=== PATIENT | male | born 1945 | race Caucasian/White ===

== ENCOUNTER 2020-01-30 15:25 | Observation (INO) | payer OTHER, MEDICARE, SELFPAY ==
[2020-01-30 15:28] VITALS: BP 176/113; PULSE 96; RESP 18; TEMP 36.4; O2SAT 97; BMI 32.5
--- NOTE | 2020-01-30 15:59 | ECG_ITS ---
Measurements Intervals [place] Rate: 82 P: 32 TN: 164 QRS: -10 QRSD: 98 T: 7 QT: 385 QTc: 450 SINUS RHYTHM MODERATE VOLTAGE CRITERIA FOR LVH, CONSIDER NORMAL VARIANT [MEETS CRITERIA IN ONE OF: R(aVL), S(V1), R(V5), R(V5/V6)+S(V1)] Compared to ECG 01/30/2020 15:35:41 Myocardial infarct finding no longer present Electronically Signed On 01-31-2020 19:44:[address] M.D. [id number]
--- NOTE | 2020-01-30 15:59 | XR_ITS ---
WS: [id number] PORTABLE CHEST HISTORY: cough/congestion COMPARISON: None available. There are a few scattered pulmonary nodules. These are probably calcified others may not be calcified . Irregular nodule measuring 6 mm in the central RIGHT lung. No pneumonia. No pleural effusion or pne umothorax. Cardiac size: Normal. Mediastinum/Aorta: Soft tissue thickening in the region of the RIGHT paratracheal. May be some sterna l goiter or lymph nodes. Partially calcified aorta. Degenerative changes at the AC joint XR/XR chest 1V portable 17130 IMPRESSION: 1. No pneumonia. 2. Bilateral pulmonary nodules. The largest measures 6 mm in the central RIGHT lung. These are not definitely calcified. No prior studies for comparison. Rec ommend follow-up chest CT with IV contrast to exclude neoplasm. 3. Fullness in the RIGHT paratracheal region. 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
--- NOTE | 2020-01-30 15:59 | ECG_ITS ---
Measurements Intervals [place] Rate: 98 P: 45 NE: 163 QRS: 18 QRSD: 98 T: 37 QT: 362 QTc: 463 SINUS RHYTHM POSSIBLE LEFT ATRIAL ENLARGEMENT [-0.1mV P WAVE IN V1/V2] POSSIBLE ANTERIOR MYOCARDIAL INFARCTION , OF INDETERMINATE AGE [30 ms Q WAVE IN V3 V3/V4, OR R < 0.2 mV IN V4] Compared to ECG 03/10/2018 17:10:05 Myocardial infarct finding now present Electronically Signed On 01-30-2020 18:45:42 CDT by Jed Westbrook M.D. [id number] saez
[2020-01-30 16:30] LABS: Basophils # 0.1 10^3/uL (0.0-0.1); Basophils % 0.6 %; Eosinophils # 0.9 10^3/uL (0.0-0.8); Eosinophils % 10.9 %; Hematocrit 45.3 % (42.0-52.0); Hemoglobin 14.2 g/dL (11.7-16.6); Lymphocytes # 1.7 10^3/uL (0.8-4.8); Lymphocytes % 21.2 %; Mean Corpuscular HGB Conc 31.3 g/dL (30.0-36.0); Mean Corpuscular Hemoglobin 31.6 pg (28.0-34.0); Mean Corpuscular Volume 100.7 fL (80-94); Mean Platelet Volume 9.7 fL (7.4-10.4); Monocytes # 0.7 10^3/uL (0.2-0.9); Monocytes % 9.2 %; Neutrophils # 4.5 10^3/uL (1.8-7.7); Neutrophils % 57.7 %; Nucleated Red Blood Cells % 0 %; Platelet Count 253 10^3/cmm (130-400); Red Cell Distribution Width 12.4 % (12.1-15.1); White Blood Count 7.8 10^3/uL (4.0-10.0)
[2020-01-30 16:39] LABS: Partial Thromboplastin Time 29.7 SECONDS (23.9-36.7)
[2020-01-30 16:42] LABS: D Dimer 0.83 ug/mIFEU (0-0.59)
[2020-01-30 16:54] LABS: Troponin(5th) Baseline 61 ng/mL (0-15)
[2020-01-30 17:02] LABS: Alanine Aminotransferase 15 U/L (0-41); Albumin Level 4.2 g/dL (3.5-5.2); Alkaline Phosphatase 109 IU/L (40-130); Anion Gap 17.2 (5-19); Aspartate Amino Transferase 17 U/L (0-40); Blood Urea Nitrogen 37 mg/dL (8-23); Calcium 9.2 mg/dL (8.5-10.5); Carbon Dioxide 27 mmol/L (22-29); Chloride 101 mmol/L (98-107); Globulin 3.7 g/dL (1.3-4.6); Glucose 98 mg/dL (65-115); NT Pro B Type Natriuretic Pept 212 pg/mL (0-125); Osmolality Calculated 289 mOsm/kg (285-295); Potassium 4.2 mmol/L (3.5-5.1); Sodium 141 mmol/L (136-145); Total Bilirubin 0.3 mg/dL (0.15-1.2); Total Protein 7.9 g/dL (6.6-8.7)
[2020-01-30 17:43] LABS: Add Urine Microscopic? NO
[2020-01-30 17:54] LABS: Bilirubin Urine Neg (NEGATIVE); Blood Urine Neg (Negative); Glucose Urine UA Norm (Normal); Ketones Urine Negative (Negative); Leukocyte Esterase Urine Negative (Negative); Nitrate Urine Negative (Negative); Protein Urine Neg (Negative); Specific Gravity, Urine 1.005 (1.005-1.030); Sulfosalicylic Acid Urine Negative (Negative); Urine Appearance Clear (CLEAR); Urine Color Straw (Yellow); Urobilinogen Urine Norm (Negative); pH Urine 8 (5-7)
--- NOTE | 2020-01-30 17:59 | ECG_ITS ---
Measurements Intervals [place] Rate: 82 P: 36 [place]: 162 QRS: -10 QRSD: 97 T: 11 QT: 385 QTc: 450 SINUS RHYTHM MINIMAL VOLTAGE CRITERIA FOR LVH, CONSIDER NORMAL VARIANT [MEETS CRITERIA IN ONE OF: R(aVL), S(V1), R(V5), R(V5/V6)+S(V1)] Compared to ECG 01/30/2020 15:35:41 Myocardial infarct finding no longer present Electronically Signed On 01-31-2020 19:47:[address] M.D. [id number]
--- NOTE | 2020-01-30 17:59 | ECG_ITS ---
Measurements Intervals [place] Rate: 95 P: 4 [place]: 148 QRS: -13 QRSD: 92 T: 5 QT: 358 QTc: 451 SINUS RHYTHM POSSIBLE LEFT ATRIAL ENLARGEMENT [-0.1mV P WAVE IN V1/V2] POSSIBLE LEFT VENTRICULAR HYPERTROPHY [VOLTAGE CRITERIA PLUS LAE OR QRS WIDENING] NONSPECIFIC T-WAVE ABNORMALITY Compared to ECG 01/30/2020 15:35:41 T-wave abnormality now present Myocardial infarct finding no longer present Electronically Signed On 01-31-2020 19:46:[address] M.D. [id number] saez
[2020-01-30 18:59] LABS: Troponin 5 2HR 81.64 ng/mL (0-15)
[2020-01-30 19:11] LABS: Troponin 5 2HR Delta 20.64 ABS# (0-10)
--- NOTE | 2020-01-30 19:23 | ED_ITS ---
HPI - Chest Pain General: Chief Complaint: Chest Pain Stated Complaint: POSSIBLE HEART ATTACK Time Seen by Provider: 01/30/20 19:22 History of Present Illness: HPI narrative: Jaden is a nice 74-year-old male who comes in complaining of chest pain. He describes the pain as a hurt . Pain is in the middle of his chest and radiates through to his back. He denies any type of ripping or tearing sensation. The pain has not been migrating. He has had shortness of breath but denies any nausea vomiting or diaphoresis. The patient had a nitroglycerin and he took that at home with some relief. He states since then the pain is just gradually been coming back. Presently says his pain is minimal. Associated symptoms: Reports dyspnea; Deny abdominal pain, diaphoresis, fever(s), nausea, palpitations, syncope or vomiting Review of Systems General: Reports: other (negative unless marked) Const: Denies: fever, chills, body aches, fatigue, malaise or diaphoresis Eyes: Denies: change in vision or blurry vision ENMT: Denies: throat pain, painful swallowing, hoarseness, ear pain, ear discharge, Change in hearing or nasal discharge Card: Reports: chest pain; Denies: palpitations, irregular heart rhythm, syncope, pre-syncope, shortness of breath on exertion or shortness of breath when lying down Resp: Reports: shortness of breath; Denies: productive cough, non-productive cough, wheezing, coughing up blood or chest congestion GI: Denies: abdominal pain, nausea, vomiting, vomiting blood, coffee grounds in vomit, diarrhea, constipation, cramping, blood in stool or black tarry stool : Denies: flank pain, difficulty urinating, painful urination, urinary frequency, urinary urgency, decreased urine ouput, urinary incontinence or blood in urine Musc: Denies: neck pain, back pain, extremity pain, extremity swelling, joint pain, joint swelling, joint warmth or joint stiffness Skin/Breast: Denies: rash, skin tenderness or yellow skin Neuro: Denies: headache, numbness in extremities, weakness in extremities, changes in sensation, lack of coordination, difficulty walking, dizziness, vertigo or confusion Endo: Denies: excessive thirst, tired all the time, cold intolerance, excessive sweating, flushing or hot flashes Giancarlo/Lymph: Denies: easy bruising, easy bleeding, petechiae or enlarged lymph nodes All/Imm: Denies: hives, throat swelling, tongue swelling, facial swelling or acute wheezing PFSH ED PFSH: Medical History COPD (chronic obstructive pulmonary disease) Diabetes mellitus Hypertension Social History Smoking and tobacco status: current some day smoker Physical Exam Const: COMMON NORMALS: no apparent distress, oriented x3, no limitations, healthy appearing and well nourished EXAM LIMITATIONS: no altered mental status GENERAL APPEARANCE: cooperative, well kempt and well developed ORIENTATION/CONSCIOUSNESS: Yes awake HENMT: COMMON NORMALS: normocephalic, head/scalp atraumatic, hearing grossly normal bilaterally, external ears normal, EAC's normal, external nose normal and moist oral mucous membranes HEAD & SCALP: normal to inspection, normocephalic and atraumatic FACE & SINUS: normal facial exam and face symmetric NOSE: external nose normal and nares normal EXTERNAL EAR: Yes external ears normal EXTERNAL AUDITORY CANAL: EAC's normal MOUTH: oral and palatal mucosa normal and tongue normal Eye: COMMON NORMALS: PERRL, EOMs intact bilaterally, conjunctivae normal and no scleral icterus GENERAL EYE: normal appearance of both eyes and normal light reflex CONJUNCTIVA: Yes conjunctivae normal SCLERA: sclerae normal CORNEA: Yes corneas normal PUPIL: Yes PERRL DIRECT OPHTHALMOSCOPY: Yes normal light reflex Neck/C-Spine: COMMON NORMALS: full ROM, no lymphadenopathy, supple, no meningeal signs and no JVD GENERAL: Yes normal visual inspection and Yes trachea midline CERVICAL SPINE: Yes cervical ROM normal Chest: COMMONS NORMALS: inspection of chest normal and palpation of chest normal Resp: COMMON NORMALS: normal respiratory effort, no retractions, no use of accessory muscles and clear to auscultation bilaterally EFFORT & INSPECTION: Yes able to speak in complete sentences AUSCULTATION: clear to auscultation bilaterally Cardio: COMMON NORMALS: no JVD, regular rate, regular rhythm, S1 normal heart sound, S2 normal heart sound, no gallops, no clicks, no murmurs and no rub JUGULAR VENOUS DISTENTION: no JVD RATE: regular rate RHYTHM: regular rhythm HEART SOUNDS: S1 normal and S2 normal GI: COMMON NORMALS: soft to palpation, non-tender, no hepatosplenomegaly and no masses INSPECTION: Yes normal to inspection PALPATION: Yes soft and Yes no hepatosplenomegaly : COMMON NORMALS: Yes no CVA tenderness BLADDER/KIDNEY EXAM: Yes no CVA tenderness Back/Pelvis: COMMON NORMALS: no CVA tenderness, thoracic and lumbar spine norm al to inspection, no thoracic nor lumbar tenderness and thoraco-lumbar ROM normal Extremity: COMMON NORMALS: normal to inspection, full ROM, normal capillary refill, no joint enlargement, no clubbing, cyanosis or edema and no calf tenderness Neuro: COMMON NORMALS: oriented x3, CN's II-XII intact bilaterally, moves all extremities, no focal motor deficits and no sensory deficits noted MENINGEAL SIGNS: Yes no meningeal signs Psych: COMMON NORMALS: mental status grossly normal, thought process normal, cooperative, affect normal, speech normal and activity/motor behavior normal APPEARANCE: Yes well kempt SPEECH: Yes normal speech THOUGHT PROCESS: normal thought process Skin: COMMON NORMALS: no rashes or lesions noted, skin turgor normal, no jaundice, no petechiae and no mottling GENERAL SKIN EXAM: no rashes or lesions noted and turgor normal Course Vital Signs: Vital signs: Vital Signs Temperature 97.6 F 01/30/20 15:28 Pulse Rate 96 01/30/20 15:28 Respiratory Rate 18 01/30/20 15:28 Blood Pressure 176/113 01/30/20 15:28 Pulse Oximetry 97 01/30/20 15:28 MDM - Chest Pain MDM Narrative: Medical decision making narrative: The patient is chest pain- free after 1 sublingual nitroglycerin here. His EKG is unremarkable. I have gone ahead and given him nitroglycerin paste. He received a loading dose of Lovenox. Dr. Zavala will determine further Lovenox dosing from here. Dr. Fofana is been made aware of the consult. Lab Data: Attestation: I reviewed the patient's lab results. Labs: Lab Results 01/30/20 01/30/20 01/30/20 Range/Units 15:55 16:13 16:13 WBC 7.8 (4.0-10.0) 10^3/ uL RBC 4.50 (4.1-5.3) 10^6/u L Hgb 14.2 (11.7-16.6) g/dL Hct 45.3 (42.0-52.0) % MCV 100.7 H (80-94) fL MCH 31.6 (28.0-34.0) pg MCHC 31.3 (30.0-36.0) g/dL RDW 12.4 (12.1-15.1) % Plt Count 253 (130-400) 10^3/c mm MPV 9.7 (7.4-10.4) fL Neut % (Auto) 57.7 % Lymph % (Auto) 21.2 % [place] % (Auto) 9.2 % Eos % (Auto) 10.9 % Baso % (Auto) 0.6 % Neut # (Auto) 4.5 (1.8-7.7) 10^3/u L Lymph # (Auto) 1.7 (0.8-4.8) 10^3/u L [place] # (Auto) 0.7 (0.2-0.9) 10^3/u L Eos # (Auto) 0.9 H (0.0-0.8) 10^3/u L Baso # (Auto) 0.1 (0.0-0.1) 10^3/u L Nucleated RBC % (a uto) 0 % Nucleated RBCs # 0.0 /100WBC PT (10.5-13.3) SECO NDS INR (0.8-1.2) APTT (23.9-36.7) SECO NDS D-Dimer (0-0.59) ug/mIFE U Sodium 141 (136-145) mmol/L Potassium 4.2 (3.5-5.1) mmol/L Chloride 101 (98-107) mmol/L Carbon Dioxide 27 (22-29) mmol/L Anion Gap 17.2 (5-19) BUN 37 H (8-23) mg/dL Creatinine 2.8 H (0.7-1.2) mg/dL Glucose 98 (65-115) mg/dL Calculated Osmolal ity 289 (285-295) mOsm/k g Calcium 9.2 (8.5-10.5) mg/dL Total Bilirubin 0.3 (0.15-1.2) mg/dL AST 17 (0-40) U/L ALT 15 (0-41) U/L Alkaline Phosphata se 109 (40-130) IU/L Troponin T Baselin e (0-15) ng/mL Troponin T 120 Min morris (0-15) ng/mL Delta Troponin T (0-10) ABS# NT-Pro-B Natriuret Pep 212 H (0-125) pg/mL Total Protein 7.9 (6.6-8.7) g/dL Albumin 4.2 (3.5-5.2) g/dL Globulin 3.7 (1.3-4.6) g/dL Urine Color Straw (Yellow) Urine Appearance Clear (CLEAR) Urine pH 8 H (5-7) Ur Specific Gravit y 1.005 (1.005-1.030) Urine Protein Neg (Negative) Urine Glucose (UA) Norm (Normal) Urine Ketones Negative (Negative) Urine Blood Neg (Negative) Urine Nitrate Negative (Negative) Urine Bilirubin Neg (NEGATIVE) Prot Sulfosalicyli c Acd Negative (Negative) Urine Urobilinogen Norm (Negative) mg/dL Ur Leukocyte Gloria ase Negative (Negative) 01/30/20 01/30/20 01/30/20 Range/Units 16:13 16:13 18:24 WBC (4.0-10.0) 10^3/ uL RBC (4.1-5.3) 10^6/u L Hgb (11.7-16.6) g/dL Hct (42.0-52.0) % MCV (80-94) fL MCH (28.0-34.0) pg MCHC (30.0-36.0) g/dL RDW (12.1-15.1) % Plt Count (130-400) 10^3/c mm MPV (7.4-10.4) fL Neut % (Auto) % Lymph % (Auto) % [place] % (Auto) % Eos % (Auto) % Baso % (Auto) % Neut # (Auto) (1.8-7.7) 10^3/u L Lymph # (Auto) (0.8-4.8) 10^3/u L [place] # (Auto) (0.2-0.9) 10^3/u L Eos # (Auto) (0.0-0.8) 10^3/u L Baso # (Auto) (0.0-0.1) 10^3/u L Nucleated RBC % (a uto) % Nucleated RBCs # /100WBC PT 12.40 (10.5-13.3) SECO NDS INR 0.90 (0.8-1.2) APTT 29.7 (23.9-36.7) SECO NDS D-Dimer 0.83 H (0-0.59) ug/mIFE U Sodium (136-145) mmol/L Potassium (3.5-5.1) mmol/L Chloride (98-107) mmol/L Carbon Dioxide (22-29) mmol/L Anion Gap (5-19) BUN (8-23) mg/dL Creatinine (0.7-1.2) mg/dL Glucose (65-115) mg/dL Calculated Osmolal ity (285-295) mOsm/k g Calcium (8.5-10.5) mg/dL Total Bilirubin (0.15-1.2) mg/dL AST (0-40) U/L ALT (0-41) U/L Alkaline Phosphata se (40-130) IU/L Troponin T Baselin e 61 H (0-15) ng/mL Troponin T 120 Min morris 81.64 H (0-15) ng/mL Delta Troponin T 20.64 H* (0-10) ABS# NT-Pro-B Natriuret Pep (0-125) pg/mL Total Protein (6.6-8.7) g/dL Albumin (3.5-5.2) g/dL Globulin (1.3-4.6) g/dL Urine Color (Yellow) Urine Appearance (CLEAR) Urine pH (5-7) Ur Specific Gravit y (1.005-1.030) Urine Protein (Negative) Urine Glucose (UA) (Normal) Urine Ketones (Negative) Urine Blood (Negative) Urine Nitrate (Negative) Urine Bilirubin (NEGATIVE) Prot Sulfosalicyli c Acd (Negative) Urine Urobilinogen (Negative) mg/dL Ur Leukocyte Gloria ase (Negative) EKG Data^: EKG 1: Attestation: I personally reviewed and interpreted this EKG as follows: EKG interpretation date: 01/30/20 EKG interpretation time: 15:35 Interpretation: Normal sinus rhythm at 98 beats a minute, no acute ST or T wave changes. EKG 2: Attestation: I personally reviewed and interpreted this EKG as follows: EKG interpretation date: 01/30/20 EKG interpretation time: 18:51 Interpretation: Normal sinus rhythm at 95 beats a minute, no acute ST or T wave changes. Discharge Plan Discharge Patient Disposition: Placed in Observation Clinical Impression: Non-ST elevation ME (NSTEMI) Condition: Stable Coding Level of Care Code ED Outpatient Physical Therapist Assistant for Chg Fwd Exam Comprehensive
[2020-01-30] MEDS: aspirin 325 mg Tablet PO (19:45)
[2020-01-30] MEDS: nitroglycerin 0.4 mg sublingual Tablet SUBLINGUAL (19:47)
[2020-01-30] MEDS: nitroglycerin 1 gm/inch oint Pkt 1 INCH TOPICAL (20:21)
[2020-01-30] MEDS: enoxaparin 100 mg/mL Syringe SUBCUT (22:24)
[2020-01-30 22:32] LABS: Troponin 5 6HR 147.4 ng/mL (0-15); Troponin 5 6HR Delta 86.4 ng/L (0-12)
--- NOTE | 2020-01-30 22:57 | PM.HP ---
Providers/Chief Complaint Chief Complaint: POSSIBLE HEART ATTACK History of Present Illness Jaden Cervantes is a 74 year old male with past medical history of diabetes, hypertension, COPD, probable chronic kidney disease who presents to emergency room with complaints of chest pain. He was given nitroglycerin prior to presenting to ER which provided improvement of the chest pain. In the emergency room he was given Nitropaste which also helped with the pain. The pain started suddenly in the morning. It is moderate in intensity. Described as tightness and pressure in substernal region without radiation. He denies similar episodes in the past. He denies any known history of prior heart disease. Troponin is elevated. Initial EKG shows poor R wave progression in precordial leads. He denies diaphoresis, shortness of breath, palpitations, dizziness or lightheadedness. Review of Systems General: Reports: 10 or more systems reviewed and unremarkable except in HPI and below Medications/Allergies Allergies Allergy/AdvReac Type Severity Reaction Status Date / Time serazone Allergy ALGY-Rash Uncoded 01/30/20 15:37 PFSH Acute PFSH: Medical History COPD (chronic obstructive pulmonary disease) Diabetes mellitus Hypertension Social History Smoking and tobacco status: current some day smoker Vitals/I&O/Wt Last Vital Signs Temp 97.6 F 01/30/20 15:28 Pulse 96 01/30/20 15:28 Resp 18 01/30/20 15:28 BP 176/113 01/30/20 15:28 Pulse Ox 97 01/30/20 15:28 Weight last 48 hrs Weight 99.79 kg Physical Exam Narrative: EXAM NARRATIVE: The patient is awake alert and oriented x4. No acute distress. Mood and affect are appropriate. Responses are adequate. Skin is warm and dry. No rash. Moist mucous membranes. Eyes [place], extraocular muscles intact. No icterus. Neck supple, no JVD Lungs clear bilaterally. No wheezes or crackles. No respiratory distress Heart S1, S2, regular Abdomen is soft, not distended, nontender, no rebound or guarding. Bowel sounds are active. Trace pedal edema. No cyanosis no calf tenderness bilaterally. Neurologic examination is nonfocal. Data : 01/30/20 16:13 01/30/20 16:13 Other Labs: Laboratory Results WBC 7.8 10^3/uL (4.0-10.0) 01/30/20 16:13 RBC 4.50 10^6/uL (4.1-5.3) 01/30/20 16:13 Hgb 14.2 g/dL (11.7-16.6) 01/30/20 16:13 Hct 45.3 % (42.0-52.0) 01/30/20 16:13 MCV 100.7 fL (80-94) H 01/30/20 16:13 MCH 31.6 pg (28.0-34.0) 01/30/20 16:13 MCHC 31.3 g/dL (30.0-36.0) 01/30/20 16:13 RDW 12.4 % (12.1-15.1) 01/30/20 16:13 Plt Count 253 10^3/cmm (130-400) 01/30/20 16:13 MPV 9.7 fL (7.4-10.4) 01/30/20 16:13 Neut % (Auto) 57.7 % 01/30/20 16:13 Lymph % (Auto) 21.2 % 01/30/20 16:13 [place] % (Auto) 9.2 % 01/30/20 16:13 Eos % (Auto) 10.9 % 01/30/20 16:13 Baso % (Auto) 0.6 % 01/30/20 16:13 Neut # (Auto) 4.5 10^3/uL (1.8-7.7) 01/30/20 16:13 Lymph # (Auto) 1.7 10^3/uL (0.8-4.8) 01/30/20 16:13 [place] # (Auto) 0.7 10^3/uL (0.2-0.9) 01/30/20 16:13 Eos # (Auto) 0.9 10^3/uL (0.0-0.8) H 01/30/20 16:13 Baso # (Auto) 0.1 10^3/uL (0.0-0.1) 01/30/20 16:13 Nucleated RBC % (auto) 0 % 01/30/20 16:13 Nucleated RBCs # 0.0 /100WBC 01/30/20 16:13 PT 12.40 SECONDS (10.5-13.3) 01/30/20 16:13 INR 0.90 (0.8-1.2) 01/30/20 16:13 APTT 29.7 SECONDS (23.9-36.7) 01/30/20 16:13 D-Dimer 0.83 ug/mIFEU (0-0.59) H 01/30/20 16:13 Sodium 141 mmol/L (136-145) 01/30/20 16:13 Potassium 4.2 mmol/L (3.5-5.1) 01/30/20 16:13 Chloride 101 mmol/L (98-107) 01/30/20 16:13 Carbon Dioxide 27 mmol/L (22-29) 01/30/20 16:13 Anion Gap 17.2 (5-19) 01/30/20 16:13 BUN 37 mg/dL (8-23) H 01/30/20 16:13 Creatinine 2.8 mg/dL (0.7-1.2) H 01/30/20 16:13 Glucose 98 mg/dL (65-115) 01/30/20 16:13 Calculated Osmolality 289 mOsm/kg (285-295) 01/30/20 16:13 Calcium 9.2 mg/dL (8.5-10.5) 01/30/20 16:13 Total Bilirubin 0.3 mg/dL (0.15-1.2) 01/30/20 16:13 AST 17 U/L (0-40) 01/30/20 16:13 ALT 15 U/L (0-41) 01/30/20 16:13 Alkaline Phosphatase 109 IU/L (40-130) 01/30/20 16:13 Troponin I 6 Hour 147.4 ng/mL (0-15) H 01/30/20 21:55 Troponin I Hi Sens Del 86.4 ng/L (0-12) H* 01/30/20 21:55 Troponin T Baseline 61 ng/mL (0-15) H 01/30/20 16:13 Troponin T 120 Minute 81.64 ng/mL (0-15) H 01/30/20 18:24 Delta Troponin T 20.64 ABS# (0-10) H* 01/30/20 18:24 NT-Pro-B Natriuret Pep 212 pg/mL (0-125) H 01/30/20 16:13 Total Protein 7.9 g/dL (6.6-8.7) 01/30/20 16:13 Albumin 4.2 g/dL (3.5-5.2) 01/30/20 16:13 Globulin 3.7 g/dL (1.3-4.6) 01/30/20 16:13 Urine Color Straw (Yellow) 01/30/20 15:55 Urine Appearance Clear (CLEAR) 01/30/20 15:55 Urine pH 8 (5-7) H 01/30/20 15:55 Ur Specific [place] 1.005 (1.005-1.030) 01/30/20 15:55 Urine Protein Neg (Negative) 01/30/20 15:55 Urine Glucose (UA) Norm (Normal) 01/30/20 15:55 Urine Ketones Negative (Negative) 01/30/20 15:55 Urine Blood Neg (Negative) 01/30/20 15:55 Urine Nitrate Negative (Negative) 01/30/20 15:55 Urine Bilirubin Neg (NEGATIVE) 01/30/20 15:55 Prot Sulfosalicylic Acd Negative (Negative) 01/30/20 15:55 Urine Urobilinogen Norm mg/dL (Negative) 01/30/20 15:55 Ur Leukocyte Esterase Negative (Negative) 01/30/20 15:55 Impressions Chest X-Ray 01/30/20 15:59 IMPRESSION: 1. No pneumonia. 2. Bilateral pulmonary nodules. The largest measures 6 mm in the central RIGHT lung. These are not definitely calcified. No prior studies for comparison. Recommend follow-up chest CT with IV contrast to exclude neoplasm. 3. Fullness in the RIGHT paratracheal region. 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 A&P Additional A&P Information Non-ST elevation NE. The patient given aspirin and full dose of Lovenox in the emergency room. Dr. St is consulted. He will see the patient in the morning. For now we will continue aspirin. Please check with the cream hauler if he wants to continue Lovenox in the morning. I am also starting the patient on Lipitor 80, Coreg 6.125 twice daily. We will continue as needed pain medications. Fasting lipids in the morning. Uncontrolled hypertension. Coreg is initiated. He will also receive PRN hydralazine and labetalol. History of chronic kidney disease. We will closely monitor his renal function. I will order IV fluid in case if he needs to go to cardiac lab tomorrow to minimize nephrotoxic effect of contrast. History of diabetes. I will start him on insulin sliding scale. DVT prophylaxis. Received Lovenox. CODE STATUS. The patient wants to be full code. The plan of care was discussed with the patient. He verbalized understanding and agreement. Pulmonary nodules/abnormal chest x-ray. The patient will need additional testing to rule out metastatic disease. Please inform the patient about this findings tomorrow and prior to discharge. Attestations Medical Necessity Statement*: Observation Coding Level of Care Code Acute Sawmill Equipment Operator for David Shen
--- NOTE | 2020-01-30 23:16 | P.CONIM_ITS ---
Providers/Reason For Consult Consulting Physican/Specialty*: Cardiology Reason for Consult*: Abnormal cardiac markers, chest pain History of Present Illness History of Present Illness Jaden Cervantes is a 74 year old male past medical history significant for tobacco abuse COPD diabetes mellitus hypertension chronic kidney disease stage III-IV presented with chest pain of off and on for about duration and it became more consistent he decided to come to ER. Chest pain consistency is more sharp in character worse on deep inspiration denies any shortness of breath. D-dimer was also elevated. Twelve-lead EKG did not show any significant changes. Meds/Allergies Home Medications and Allergies Allergies Allergy/AdvReac Type Severity Reaction Status Date / Time serazone Allergy ALGY-Rash Uncoded 01/30/20 15:37 Current Medications Current Medications Generic Name Dose Route Start Last Admin Trade Name Freq PRN Reason Stop Dose Admin Nitroglycerin 0.4 mg 01/30/20 19:30 01/30/20 19:47 Nitrostat SUBLINGUAL 0.4 mg Q5M PRN Administration CHEST PAIN PFSH Acute PFSH: Medical History (Updated 01/30/20 @ 23:[address] MD) COPD (chronic obstructive pulmonary disease) Diabetes mellitus Hypertension Social History Smoking and tobacco status: current some day smoker Vitals/I&O/Wt Last Vital Signs Temp 97.6 F 01/30/20 15:28 Pulse 96 01/30/20 15:28 Resp 18 01/30/20 15:28 BP 176/113 01/30/20 15:28 Pulse Ox 97 01/30/20 15:28 Weight last 48 hrs Weight 220 lb Data Labs: Other Labs: SINUS RHYTHM POSSIBLE LEFT ATRIAL ENLARGEMENT [-0.1mV P WAVE IN V1/V2] POSSIBLE LEFT VENTRICULAR HYPERTROPHY [VOLTAGE CRITERIA PLUS LAE OR QRS WIDENING] NONSPECIFIC T-WAVE ABNORMALITY Compared to ECG 01/30/2020 15:35:41 T-wave abnormality now present Myocardial infarct finding no longer present A&P Assessment and plan (1) Hypertension: Moderately elevated. Nitropaste, hydralazine will be used every required nitroglycerin IV should be started Status: Acute (2) CKD (chronic kidney disease) stage 4, GFR 15-29 ml/min: Baseline creatinine around 2.7-2.8 patient has stage IV kidney disease. Status: Acute (3) Abnormal cardiac enzyme level: Multifactorial including demand ischemia in the face of reduced clearance through renal failure. Pulmonary embolism need to be ruled out as well as pain characteristics is more consistent with it. CTA cannot be performed as due to renal failure. We will treat him conservatively. He may require ultrasound of the leg to rule out DVT and lung scan. If rule out for pulmonary embolism may will ask for a stress test. We will continue to monitor him. Echocardiogram will also be obtained in the morning. Status: Acute Coding Level of Care Code New Pt Acute Machine Clothing Replacer for Chg Fwd Patient Type New History Expanded Problem Focused Exam Expanded Problem Focused Medical Decision Making Moderate Complexity Diagnoses Hypertension I10 CKD (chronic kidney disease) stage 4, GFR 15-29 ml/min N18.4 Abnormal cardiac enzyme level R74.8
[2020-01-31] VITALS (74 sets, daily range): BP systolic 122–176; BP diastolic 78–113; PULSE 40–103; RESP 10–22; TEMP 36.7–37; O2SAT 91–97
--- NOTE | 2020-01-31 01:16 | PC.NURSE ---
Patient given sandwich per Dr. camargo. Patient also given a hospital bed since we will be boarding patient lauri.
[2020-01-31 02:32] LABS: Thyroid Stimulating Hormone 1.31 uIU/mL (0.27-4.20)
[2020-01-31] MEDS: sodium chloride 0.9% 1,000 ML 100 ML IV ×2 (03:01→13:35)
--- NOTE | 2020-01-31 04:05 | PC.NURSE ---
Assumed care of patient from CN.
--- NOTE | 2020-01-31 06:30 | PC.NURSE ---
Patient moved from Room 8 to Room 7.
[2020-01-31 06:33] LABS: Basophils # 0.1 10^3/uL (0.0-0.1); Eosinophils # 1.4 10^3/uL (0.0-0.8); Eosinophils % 19.7 %; Hemoglobin 13.1 g/dL (11.7-16.6); Lymphocytes # 2.2 10^3/uL (0.8-4.8); Lymphocytes % 31.5 %; Mean Corpuscular Hemoglobin 31.8 pg (28.0-34.0); Mean Corpuscular Volume 99.5 fL (80-94); Mean Platelet Volume 9.9 fL (7.4-10.4); Monocytes # 0.8 10^3/uL (0.2-0.9); Monocytes % 11.4 %; Neutrophils # 2.5 10^3/uL (1.8-7.7); Neutrophils % 35.8 %; Nucleated Red Blood Cells % 0 %; Platelet Count 220 10^3/cmm (130-400); Red Blood Count 4.12 10^6/uL (4.1-5.3); Red Cell Distribution Width 12.5 % (12.1-15.1)
[2020-01-31 06:37] LABS: Anion Gap 15.1 (5-19); Blood Urea Nitrogen 33 mg/dL (8-23); Carbon Dioxide 27 mmol/L (22-29); Chloride 106 mmol/L (98-107); Glucose 104 mg/dL (65-115); Magnesium 2.8 mg/dL (1.7-2.3); Osmolality Calculated 296 mOsm/kg (285-295); Potassium 4.1 mmol/L (3.5-5.1); Sodium 144 mmol/L (136-145)
[2020-01-31 06:38] LABS: Chol HDL Ratio 3.41 mg/dL (1.0-5.00); Cholesterol 133 mg/dL (0-200); HDL Cholesterol 39 mg/dL (60-100); LDL Cholesterol Calculated 71 mg/dL (50-129); LDL HDL Ratio 1.82 RATIO (0.00-3.22); Triglycerides 117 mg/dL (0-150)
--- NOTE | 2020-01-31 07:36 | PC.NURSE ---
Report received from Timothy Mitchell RN at 0700. Patient resting in bed comfortably at this time.
--- NOTE | 2020-01-31 07:44 | PM.PN ---
Subjective Subjective: Interval history: History and physical physical reviewed. Patient denies any chest discomfort currently. He does report a cough. Medications: Reviewed: Yes Vitals/I&O/Wt Last Vital Signs Temp 97.6 F 01/30/20 15:28 Pulse 76 01/31/20 07:25 Resp 16 01/31/20 07:25 BP 130/90 01/31/20 07:25 Pulse Ox 91 01/31/20 07:25 Weight last 48 hrs Weight 99.79 kg Physical Exam Narrative: EXAM NARRATIVE: General exam is no apparent distress Cardiovascular regular rate and rhythm without murmur Lungs a few rhonchi bibasilar. No wheezing Abdomen is soft with positive bowel sounds Extremities no cyanosis clubbing. Trace edema is present. Data : 01/31/20 06:12 01/31/20 06:12 A&P Additional A&P Information Non-ST elevation [place]. Continue full dose Lovenox. Continue aspirin, statin, beta-nuzhat. Appreciate cardiology consultation. In reviewing cardiology consultation they would like to evaluate the possibility of pulmonary embolism with VQ scan, venous duplex lower extremities. I have ordered this. Certainly VQ scan will need to be delayed until COVID testing returns. Consideration of nuclear stress testing if above is negative. Echocardiogram ordered Pulmonary nodules. Will need outpatient follow-up Hypertension, improved today. Continue beta-nuzhat. Evaluate for other medicine addition. Chronic kidney disease stage III. Currently receiving fluids. Avoid renal toxic medications. Tobacco dependency, probable COPD. Combivent metered-dose inhaler as needed History of diabetes. Sliding scale insulin. Full code DVT prophylaxis with Lovenox The plan of care was discussed with the patient. He verbalized understanding and agreement. Attestations Medical Necessity Statement*: Needs continued hospitalization for evaluation of chest discomfort. Coding Level of Care Code Acute Hospice Patient Care Secretary for David Shen
[2020-01-31] MEDS: aspirin 81 mg EC Tablet 162 MG PO (09:42)
[2020-01-31] MEDS: enoxaparin 100 mg/mL Syringe SUBCUT ×2 (09:42→23:05)
[2020-01-31] MEDS: atorvastatin 40 mg Tablet 80 MG PO (09:42)
--- NOTE | 2020-01-31 10:07 | PC.NURSE ---
Attempted to call report to ICU, on hold for 15 minutes was told nurse taking patient is in room with other patient.
[2020-01-31 13:08] LABS: Glucose Point of Care 98 mg/dL (70-110)
[2020-01-31] MEDS: carvedilol 6.25 mg Tablet PO ×2 (13:34→23:04)
[2020-01-31 17:56] LABS: Glucose Point of Care 133 mg/dL (70-110)
--- NOTE | 2020-01-31 19:24 | PM.PN ---
Subjective Subjective: Interval history: Denies any more chest pain. Medications: Reviewed: Yes Vitals/I&O/Wt Last Vital Signs Temp 98.6 F 01/31/20 10:15 Pulse 53 L 01/31/20 16:35 Resp 17 01/31/20 14:45 BP 158/106 01/31/20 16:35 Pulse Ox 96 01/31/20 16:35 01/31/20 01/31/20 01/31/20 06:59 14:59 22:59 Intake Total 1000 / 1000 Balance 1000 / 1000 Weight last 48 hrs Weight 220 lb Data : 01/31/20 06:12 01/31/20 06:12 A&P Assessment and plan (1) Hypertension: Well-controlled. Status: Acute (2) CKD (chronic kidney disease) stage 4, GFR 15-29 ml/min: Baseline creatinine around 2.7-2.8 patient has stage IV kidney disease. Status: Acute (3) Abnormal cardiac enzyme level: Multifactorial including demand ischemia in the face of reduced clearance through renal failure. Pulmonary embolism need to be ruled out as well as pain characteristics is more consistent with it. CTA cannot be performed as due to renal failure. We will treat him conservatively. He may require ultrasound of the leg to rule out DVT and lung scan. If rule out for pulmonary embolism may will ask for a stress test. We will continue to monitor him. Echocardiogram will also be obtained in the morning. Patient denies any more chest pain. Troponin has peaked to 146 by generation 5. VQ scan will be performed. Echo is pending. After reviewing the results further plan will be advised. Continue anticoagulation Status: Acute Attestations Medical Necessity Statement*: Patient require continuation hospitalization for above defined care Coding Level of Care Code Established Pt Acute Semiconductor Wafers Etcher Stripper for Chg Fwd Patient Type Established History Expanded Problem Focused Exam Expanded Problem Focused Medical Decision Making Moderate Complexity Diagnoses Hypertension I10 CKD (chronic kidney disease) stage 4, GFR 15-29 ml/min N18.4 Abnormal cardiac enzyme level R74.8
--- NOTE | 2020-01-31 20:40 | PC.NURSE ---
Assumed care of patient at 0030 from Nurse Nur.
[2020-01-31 21:15] LABS: Glucose Point of Care 84 mg/dL (70-110)
[2020-02-01] VITALS (7 sets, daily range): BP systolic 122–168; BP diastolic 79–112; PULSE 62–86; RESP 18–24; TEMP 36.4–36.8; O2SAT 91–96
[2020-02-01] MEDS: sodium chloride 0.9% 1,000 ML 30 ML IV (02:09)
[2020-02-01 05:23] LABS: Basophils # 0.1 10^3/uL (0.0-0.1); Basophils % 0.7 %; Eosinophils # 1.5 10^3/uL (0.0-0.8); Eosinophils % 20.7 %; Hematocrit 41.6 % (42.0-52.0); Hemoglobin 13.2 g/dL (11.7-16.6); Lymphocytes # 2.3 10^3/uL (0.8-4.8); Lymphocytes % 32.1 %; Mean Corpuscular HGB Conc 31.7 g/dL (30.0-36.0); Mean Corpuscular Hemoglobin 31.4 pg (28.0-34.0); Mean Platelet Volume 9.7 fL (7.4-10.4); Monocytes # 0.7 10^3/uL (0.2-0.9); Monocytes % 9.5 %; Neutrophils # 2.7 10^3/uL (1.8-7.7); Neutrophils % 36.6 %; Nucleated Red Blood Cells % 0 %; Platelet Count 241 10^3/cmm (130-400); Red Cell Distribution Width 12.4 % (12.1-15.1); White Blood Count 7.3 10^3/uL (4.0-10.0)
[2020-02-01 06:02] LABS: Alanine Aminotransferase 12 U/L (0-41); Albumin Level 3.8 g/dL (3.5-5.2); Alkaline Phosphatase 97 IU/L (40-130); Aspartate Amino Transferase 16 U/L (0-40); Blood Urea Nitrogen 29 mg/dL (8-23); Calcium 8.7 mg/dL (8.5-10.5); Carbon Dioxide 25 mmol/L (22-29); Chloride 106 mmol/L (98-107); Globulin 3.2 g/dL (1.3-4.6); Glucose 99 mg/dL (65-115); Osmolality Calculated 289 mOsm/kg (285-295); Sodium 141 mmol/L (136-145); Total Bilirubin 0.3 mg/dL (0.15-1.2)
[2020-02-01 06:51] LABS: Glucose Point of Care 99 mg/dL (70-110)
--- NOTE | 2020-02-01 07:00 | USCV_ITS ---
Jaden Cervantes Age: 74 Gender: M : 1945 Exam Date: 02/01/2020 10:30 Ordering Phys: Elton Grullon MD Technologist: Asha Cevallos Exam Location: [facility] – [place] Indication: POSITIVE D-DIMER HISTORY: Positive D-dimer PROCEDURES: Venous duplex imaging was performed in bilateral lower extremities. The following venous structures were evaluated: common femoral vein, profunda vein, proximal portion of the greater saphenous vein, superficial femoral vein, and the popliteal vein. In addition, the posterior tibial and peroneal trunk were evaluated. Serial compression, augmentation maneuvers, and spectral Doppler flow evaluation were performed. FINDINGS: Normal 2-D Doppler and augmentation and compressibility throughout the lower extremity venous structures. Additional imaging through the proximal calf veins also reveals no thrombus. Limited evaluation of the greater saphenous vein is patent with no thrombus.. Collapsed wall mass in the right popliteal fossa may be a small or collapsed Perez's cyst. CONCLUSIONS No DVT bilateral lower extremities. Collapsed or small right Perez's cyst. Dr. Digna Cooney DO (Electronically Signed) Final Date: 01 Feb 2020 13:23 S
--- NOTE | 2020-02-01 07:00 | USCV_ITS ---
Jaden Cervantes Age: 74 Gender: M : 1945 Exam Date: 02/01/2020 10:15 Ordering Phys: Elton Grullon MD Technologist: Asha Cevallos Exam Location: [facility] – [place] Indication: ELEV TROP BP: / HR: 70 Rhythm: Sinus Technical Quality: Poor MEASUREMENTS (Male / Female) Normal Values 2D ECHO LV Diastolic Diameter PLAX 5.0 cm 4.2 - 5.9 / 3.9 - 5.3 cm LV Systolic Diameter PLAX 3.7 cm LV Chamber Size 3.5 cm IVS Diastolic Thickness 1.4 cm 0.6 - 1.0 / 0.6 - 0.9 cm IVS Systolic Thickness 2.0 cm LVPW Diastolic Thickness 2.2 cm 0.6 - 1.0 / 0.6 - 0.9 cm LVPW Systolic Thickness 2.0 cm RV Chamber Size 4.0 cm LVOT Diameter 2.0 cm LV Ejection Fraction 2D Teich 51.5 % LV Ejection Fraction MOD 2C 62.0 % LV Ejection Fraction 2C AL 64.7 % LA Diameter 5.4 cm LA Width 3.2 cm LA Height 4.8 cm RA Width 3.2 cm RA Height 4.7 cm Aorta at Sinotubular Diameter 4.1 cm M-MODE LV Diastolic Diameter MM 6.7 cm 4.2 - 5.9 / 3.9 - 5.3 cm LV Systolic Diameter MM 5.4 cm LV Ejection Fraction MM Teich 38.8 % IVS Diastolic Thickness MM 1.3 cm 0.6 - 1.0 / 0.6 - 0.9 cm IVS Systolic Thickness MM 2.0 cm LVPW Diastolic Thickness MM 1.1 cm 0.6 - 1.0 / 0.6 - 0.9 cm LVPW Systolic Thickness MM 1.9 cm Aortic Annulus Diameter 3.0 cm LA Ao Ratio MM 1.8 MV E Point Septal Separation 1.2 cm DOPPLER AV Peak Velocity 126.0 cm/s LVOT Peak Velocity 78.0 cm/s AV Area Cont Eq vti 2.6 cm squared AV Area Cont Eq pk 2.0 cm squared MV Area PHT 3.5 cm squared Mitral E to A Ratio 0.6 MV E' Velocity 8.0 cm/s Mitral E to MV E' Ratio 8.6 Mitral E to LV E' Lateral Ratio 7.6 Mitral E to LV E' Septal Ratio 10.3 TR Peak Velocity 231.0 cm/s TR Peak Gradient 21.4 mmHg TV Peak E Velocity 45.0 cm/s Right Atrial Pressure 3.0 mmHg Pulmonary Artery Systolic Pressu 24.3 mmHg PV Peak Velocity 73.0 cm/s RV Acceleration Time 0.1 s RV Ejection Time 0.3 s RV AcT/ET 0.3 FINDINGS Left Ventricle The ventricle is poorly seen in all views with the exception of the apical view. The ventricle is likely normal in size. No obvious wall motion disturbances. Grade 1 diastolic dysfunction. A rough estimate of the ejection fraction is 55 to 60%. Right Ventricle The right ventricle appears mildly generous in size. The free wall motion is normal. Normal pulmonary artery pressure Right Atrium Mildly increased right atrial size. Left Atrium Moderately increased left atrial size. Mitral Valve Structurally normal mitral valve. Trace mitral valve regurgitation. Aortic Valve Structurally normal aortic valve without significant sclerosis or stenosis. There is no aortic regurgitation. Tricuspid Valve Structurally normal tricuspid valve without significant stenosis or regurgitation. Pulmonary artery systolic pressure is normal. Pulmonic Valve Pulmonic valve not well visualized. Pericardium Normal pericardium without effusion. Aorta Normal ascending aorta dimension. CONCLUSIONS The ventricle is poorly seen in all views with the exception of the apical view. The ventricle is likely normal in size. No obvious wall motion disturbances. Grade 1 diastolic dysfunction. A rough estimate of the ejection fraction is 55 to 60%. Mildly increased right atrial size. Moderately increased left atrial size. Structurally normal mitral valve. Trace mitral valve regurgitation. There are no prior echocardiogram studies to compare. Dr. Ervin Nichols MD (Electronically Signed) Final Date: 01 Feb 2020 16:09 S
--- NOTE | 2020-02-01 08:00 | NM_ITS ---
WS: [id number] NUCLEAR MEDICINE VENTILATION/PERFUSION LUNG SCAN HISTORY: positive d-dimer, SEE NOTE BELOW; COMPARISON: Chest radiograph 01/30/2020 TECHNIQUE: Ventilation: 32.5 mCi of Technetium 99 DTPA aerosol inhaled. Perfusion: 4.9 mCi of technetium 99m MAA IV. Ventilatory portion demonstrates significant deposition centrally with poor radionuclide inhalation i n the periphery. Perfusion examination demonstrates a matched wedge-shaped defect in the posterior LE FT lower lobe. There are no unmatched defects. NM/NM pul vent and perfus* [id number] IMPRESSION: Low probability pulmonary embolism.
[2020-02-01] MEDS: aspirin 81 mg EC Tablet 162 MG PO (09:02)
[2020-02-01] MEDS: atorvastatin 40 mg Tablet 80 MG PO (09:02)
--- NOTE | 2020-02-01 09:22 | PC.RESP ---
Smoking Cessation and Pulmonary Rehab information sent to patient with a schedule of classes.
--- NOTE | 2020-02-01 10:04 | PC.CHAP ---
Pastoral Care Encounter/Spiritual Assessment Type of Contact [] Declined concrete panel installer visit [] Patient/Family/Request visit [] Outpatient visit [] Follow-up visit [] Physician referral [] Code/Alert [x] Routine visit [] Staff referral [] Actively dying [] Patient sleeping [] Family support [] [] Out of room [] Palliative care [] [] Receiving care in room [] Pre-surgical visit [] Trauma [] Long length of stay [] ICU visit [] Other: Relational/Emotional Strength [] Patient feels connected with others/family/visitors/staff [] Distress [] Loneliness/isolation [] Abandonment Spirituality of Patient [] Person of Cassie [] Attends Oriental Orthodox of their Cassie [] Believes in Prayer [] Reads Bible or Samaritan materials [] There are Spiritual issues to be addressed Utilities And Maintenance Supervisor Interventions [x] Prayer [] Active listening [] Non-anxious presence [] Spiritual/emotional support [] Crisis/trauma care [] Spiritual counseling [] Bereavement support [] Provided bereavement packet [] Provided Bible/devotional materials [] Provided toy/stuffed animal, coloring book to patient or family member [] Provided Communion [] Anointing/[place] [] Salvation [x] Completed spiritual assessment [] Other: Impact on Illness or Injury [] Angry [] Fearful [] Anxious [] Often cries [] Exhaustion [] Unable to work [] Unable to attend samaritan [] Unable to walk/stand [] Unable to read [] Unable to drive [] Unable to eat/drink [] Unable to sleep [] Unable to be with family [] Patient intubated [] Other: Summary Patient feeling stronger Time spent with patient 10 min
--- NOTE | 2020-02-01 10:57 | PM.PN ---
Subjective Subjective: Interval history: Patient admits to occasional chest pain whenever he takes a deep breath Medications: Reviewed: Yes Vitals/I&O/Wt Last Vital Signs Temp 97.6 F 02/01/20 07:46 Pulse 86 02/01/20 08:16 Resp 18 02/01/20 08:16 BP 168/112 02/01/20 07:46 Pulse Ox 95 02/01/20 08:16 01/31/20 02/01/20 02/01/20 22:59 06:59 14:59 Intake Total 360 / 1360 1000 / 2360 240 / 240 Balance 360 / 1360 1000 / 2360 240 / 240 Weight last 48 hrs Weight 220 lb Data : 02/01/20 04:53 02/01/20 04:53 A&P Assessment and plan (1) Hypertension: Not well controlled we will titrate medicine. I will increase carvedilol to 12.5 mg and will add amlodipine to the regimen Status: Acute (2) CKD (chronic kidney disease) stage 4, GFR 15-29 ml/min: Baseline creatinine around 2.7-2.8 patient has stage IV kidney disease. Status: Acute (3) Abnormal cardiac enzyme level: Multifactorial including demand ischemia in the face of reduced clearance through renal failure. Pulmonary embolism need to be ruled out as well as pain characteristics is more consistent with it. CTA cannot be performed as due to renal failure. We will treat him conservatively. He may require ultrasound of the leg to rule out DVT and lung scan. If rule out for pulmonary embolism may will ask for a stress test. We will continue to monitor him. Echocardiogram will also be obtained in the morning. Patient denies any more chest pain. Troponin has peaked to 146 by generation 5. VQ scan will be performed. Echo is pending. After reviewing the results further plan will be advised. Continue anticoagulation On today's visit patient chest pain has resolved mostly except for occasional chest pain on deep breathing. VQ scan was performed which is low probability. There is no pleurisy. Doppler of lower extremity is awaiting. If everything turned out to be negative we may can schedule him for outpatient stress test. I will follow-up on him in my clinic in 4 to 6 weeks Status: Acute Attestations Medical Necessity Statement*: Patient require continuation hospitalization for above defined care. Coding Level of Care Code Acute Vice President Network Development for Nataliag Fwd Diagnoses Hypertension I10 CKD (chronic kidney disease) stage 4, GFR 15-29 ml/min N18.4 Abnormal cardiac enzyme level R74.8
[2020-02-01 11:02] LABS: Glucose Point of Care 88 mg/dL (70-110)
[2020-02-01] MEDS: enoxaparin 100 mg/mL Syringe SUBCUT (11:24)
[2020-02-01] MEDS: carvedilol 12.5 mg Tablet PO (11:24)
[2020-02-01] MEDS: amlodipine 5 mg Tablet 2.5 MG PO (11:24)
--- NOTE | 2020-02-01 11:44 | PM.PN ---
Subjective Subjective: Interval history: Jaden reports no chest discomfort. He reports his chest discomfort he did have previously hurt when he was breathing. He denies any significant cough. Medications: Reviewed: Yes Vitals/I&O/Wt Last Vital Signs Temp 97.6 F 02/01/20 07:46 Pulse 86 02/01/20 08:16 Resp 18 02/01/20 08:16 BP 168/112 02/01/20 07:46 Pulse Ox 95 02/01/20 08:16 01/31/20 02/01/20 02/01/20 22:59 06:59 14:59 Intake Total 360 / 1360 1000 / 2360 240 / 240 Balance 360 / 1360 1000 / 2360 240 / 240 Weight last 48 hrs Weight 99.79 kg Physical Exam Narrative: EXAM NARRATIVE: General exam is no apparent distress Cardiovascular regular rate and rhythm without murmur Lungs a few rhonchi bibasilar. No wheezing Abdomen is soft with positive bowel sounds Extremities no cyanosis clubbing. Trace edema is present. Data : 02/01/20 04:53 02/01/20 04:53 A&P Additional A&P Information Non-ST elevation [place]. Continue full dose Lovenox. Continue aspirin, statin, beta-nuzhat. Cardiology has evaluated, and was concerned regarding pulmonary embolism. VQ scan is low probability. Venous duplex lower extremities pending. COVID testing was negative. Consideration of nuclear stress testing by cardiology, after review of venous duplex and echocardiogram. I will defer to their judgment whether this should be inpatient or outpatient. Pulmonary nodules. Will need outpatient follow-up Hypertension, improved today. Continue beta-nuzhat. Norvasc added Chronic kidney disease stage III. Avoid renal toxic medications. Tobacco dependency, probable COPD. Combivent metered-dose inhaler as needed History of diabetes. Sliding scale insulin. Full code DVT prophylaxis with Lovenox Discontinue IV fluids Will review with cardiology further plans such as nuclear stress testing. Attestations Medical Necessity Statement*: Awaiting further testing to determine if discharge is appropriate today. Coding Level of Care Code Acute Telecommunications Line Installer for David Shen
--- NOTE | 2020-02-01 13:57 | PM.DCS ---
Discharge Providers Date of Admission: 01/31/20 10:16 Date of Discharge: February 01, 2020 Attending Provider at Admission: Elton Grullon MD Attending Provider at Discharge: Elton Grullon MD Primary Care Provider: DOCTOR NOT ON FILE Diagnoses at Discharge Discharge Diagnosis (1) Hypertension: Status: Acute Problem details: Markedly elevated on admission. With medication adjustments this is much improved. Currently on Norvasc, carvedilol and Imdur will be added on discharge (2) CKD (chronic kidney disease) stage 4, GFR 15-29 ml/min: Status: Acute Problem details: Stable (3) Abnormal cardiac enzyme level: Status: Acute Problem details: Venous duplex, VQ scan negative. Echocardiogram normal EF, no wall motion abnormalities. Will have outpatient nuclear imaging testing Reason for Visit Reason for Visit: Reason For Visit: POSSIBLE HEART ATTACK Hospital Course Hospital Course: Mr. Cervantes is a 74-year-old white male who presented to the emergency department with chest discomfort, somewhat pleuritic in quality. Troponin was elevated. D-dimer was slightly high. EKG not diagnostic. Blood pressure was significantly high. Serial cardiac enzyme levels were monitored and baseline high-sensitivity troponin was 61, and at 6 hours 147. While in the hospital he had no further chest discomfort. Cardiology was consulted. They were concerned about the pleuritic nature of the discomfort. A VQ scan was ordered(CTA avoided secondary to renal dysfunction) as well as bilateral venous duplex. Both of these studies were negative. Echocardiogram was performed which was reported to me by cardiology of normal EF, no wall motion abnormalities or significant concerns. While in the hospital medication was adjusted, for heart safe medication as well as treatment of blood pressure. Coreg was added. Norvasc was added. Imdur will be added on discharge. He received aspirin and a statin. TSH was checked and normal. Chest x-ray demonstrated some pulmonary nodules, which should be followed up as an outpatient COVID testing was negative. After reviewing with cardiology his current clinical course, as he had no chest discomfort and the pain was atypical he will be discharged home for outpatient nuclear stress testing and follow-up with cardiology. His elevated cardiac enzymes are thought to be type II elevation. Physical Exam Narrative: EXAM NARRATIVE: See exam from earlier today Discharge Data Data Completed and Pending: Completed Studies During Hospitalization Category Date Time Status XR chest 1V malorie ble [id number] Urgent Exams 01/30/20 15:59 Completed NM pul vent and p erfus* [id number] Routi ne Nuc Med 02/01/20 08:00 [place] [id number] Routin e Ultrasound 02/01/20 07:00 Completed Pending at discharge Category Date Time Status CV echo complete* [id number] Routine Ultrasound 02/01/20 07:00 Taken Labs from last 24 hours 02/01/20 02/01/20 02/01/20 10:56 06:34 04:53 WBC RBC Hgb Hct MCV MCH MCHC RDW Plt Count MPV Neut % (Auto) Lymph % (Auto) Garfield % (Auto) Eos % (Auto) Baso % (Auto) Neut # (Auto) Lymph # (Auto) Garfield # (Auto) Eos # (Auto) Baso # (Auto) Nucleated RBC % (a uto) Nucleated RBCs # Sodium 141 Potassium 4.0 Chloride 106 Carbon Dioxide 25 Anion Gap 14.0 BUN 29 H Creatinine 2.4 H Glucose 99 POC Glucose 88 99 Calculated Osmolal ity 289 Calcium 8.7 Total Bilirubin 0.3 AST 16 ALT 12 Alkaline Phosphata se 97 Total Protein 7.0 Albumin 3.8 Globulin 3.2 Nasal/Oral COVID-1 9 PCR 02/01/20 01/31/20 01/31/20 04:53 21:09 17:47 WBC 7.3 RBC 4.20 Hgb 13.2 Hct 41.6 L MCV 99.0 H MCH 31.4 MCHC 31.7 RDW 12.4 Plt Count 241 MPV 9.7 Neut % (Auto) 36.6 Lymph % (Auto) 32.1 Garfield % (Auto) 9.5 Eos % (Auto) 20.7 Baso % (Auto) 0.7 Neut # (Auto) 2.7 Lymph # (Auto) 2.3 Garfield # (Auto) 0.7 Eos # (Auto) 1.5 H Baso # (Auto) 0.1 Nucleated RBC % (a uto) 0 Nucleated RBCs # 0.0 Sodium Potassium Chloride Carbon Dioxide Anion Gap BUN Creatinine Glucose POC Glucose 84 133 Calculated Osmolal ity Calcium Total Bilirubin AST ALT Alkaline Phosphata se Total Protein Albumin Globulin Nasal/Oral COVID-1 9 PCR 01/30/20 23:02 WBC RBC Hgb Hct MCV MCH MCHC RDW Plt Count MPV Neut % (Auto) Lymph % (Auto) Garfield % (Auto) Eos % (Auto) Baso % (Auto) Neut # (Auto) Lymph # (Auto) Garfield # (Auto) Eos # (Auto) Baso # (Auto) Nucleated RBC % (a uto) Nucleated RBCs # Sodium Potassium Chloride Carbon Dioxide Anion Gap BUN Creatinine Glucose POC Glucose Calculated Osmolal ity Calcium Total Bilirubin AST ALT Alkaline Phosphata se Total Protein Albumin Globulin Nasal/Oral COVID-1 9 PCR See comment Vitals: Last Vital Signs Temp 98.3 F 02/01/20 12:00 Pulse 75 02/01/20 12:00 Resp 18 02/01/20 12:00 BP 122/79 02/01/20 12:00 Pulse Ox 95 02/01/20 12:00 Discharge Plan Discharge Patient Disposition: Home, Self-Care Condition: Stable Prescriptions: New carvedilol 12.5 mg Tablet 12.5 mg PO Q12H Qty: 60 RF: 0 amlodipine 5 mg Tablet 2.5 mg PO DAILY Qty: 15 RF: 0 aspirin 81 mg Tablet,Delayed Release (Dr/Ec) 162 mg PO DAILY Qty: 60 RF: 0 atorvastatin 40 mg Tablet 80 mg PO DAILY Qty: 60 RF: 0 isosorbide mononitrate 30 mg tablet extended release 24 hr 30 mg PO DAILY Qty: 30 RF: 0 Discontinued nifedipine 60 mg Tablet Extended Release 120 mg PO DAILY RF: 0 Discharge Orders: Discharge Order (Routine); Ordered 02/01/20 Ordered By: Elton Grullon Other Ambulatory Orders: Sestamibi Stress Test Request (Routine) Timeframe: 1 Week Facility: [facility] - Location: Cardiac Diagnostic Laboratory Ordered By: Elton Grullon Referrals: Florian St MD [Physician] - 1 month Sabina Yeh FNP [Referring] - 4-7 days (Follow-up at [facility] with visit, [facility] Arrange for outpatient noncontrast CT chest follow-up pulmonary nodule seen on chest x-ray [facility], in 1 to 2 weeks) Discharge Diet: Cardiac and Diabetic Discharge Activity: Limit activity as instructed Activity Restrictions/Additional Instructions: Light activity Nuclear stress test as outpatient Follow-up cardiology, Dr. St 3 weeks Return for any concerns Discharge Attestations Time Spent in Discharge Care*: greater than 30 min Quality Metrics Clinical Quality Measures During this hospital stay, did patient experience: None Coding Level of Care Code Acute Radiation Oncology Manager for Chg Fwd Diagnoses Hypertension I10 CKD (chronic kidney disease) stage 4, GFR 15-29 ml/min N18.4 Abnormal cardiac enzyme level R74.8
== END 2020-02-01 16:10 | disposition home or self-care (01) ==
LOC: ER 01-31 07:12 → ICU 01-31 12:30 → MEDSURG 01-31 20:39
PROVIDERS: Emergency Medicine; Family Medicine; Internal Medicine; Physician Assistant; Admitting Provider Internal Medicine; Visit Provider Internal Medicine
DX: I21.4 Non-ST elevation (NSTEMI) myocardial infarction (principal); R74.8 Abnormal levels of other serum enzymes; I12.9 Hypertensive chronic kidney disease with stage 1 through stage 4 chronic kidney disease, or unspecified chronic kidney disease; N18.3 Chronic kidney disease, stage 3 (moderate); F17.210 Nicotine dependence, cigarettes, uncomplicated
CPT/HCPCS: 12345; 36415; 36416; 71045; 78014; 80048; 80053; 80061; 81003; 82962; 83735; 83880; 84443; 84484; 85025; 85378; 85610; 85730; 87635; 93005; 93306; 93970; 94640; 96360; 96361; 96372; 96374; 96375; 96376; 99283; 99285; A9540; A9567; G0378; G0379; J1650; J7030

== ENCOUNTER 2020-03-26 09:39 | Outpatient (CLI) | payer OTHER, MEDICARE, SELFPAY ==
[2020-03-26 09:58] VITALS: BMI 36.0
--- NOTE | 2020-03-26 09:59 | NMCV_ITS ---
NM flaquito perf SPECT r/s* [id number] Jaden Cervantes Age: 74 Gender: M : 1945 Exam Date: 03/26/2020 09:59 Ordering Phys: Florian St MD ([email or web address]) Technologist: ISAMAR Davenport Exam Location: [facility] Indications: Abnormal cardiac enzyme levels STRESS TEST Please see separate stress test report in [facility] for full findings IMAGE PROTOCOL Rest/Stress 1 Lexiscan Day Radiopharmaceutical Dose (mCi) Administration Site Administered by Rest: Tc-99m 10.8 IV ISAMAR Mccullough Sestamibi Stress:Tc-99m 32.8 IV ISAMAR Davenport Sestamibi Rest: 26-Mar-2020 60 Discovery 630 Stress: 26-Mar-2020 60 Discovery 630 0.4mg Lexiscan. Supine position only as patient was unable to lay prone. 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 FUNCTIONAL RESULTS (calculated via Gated SPECT) Stress Image LV EF (%): 49 Stress EDV (mL):132 TID: 1 Stress ESV (mL):67 Rest Image LV EF (%): 49 FUNCTIONAL FINDINGS: Inferior for lateral wall hypokinesis IMPRESSIONS Medium-sized area of old myocardial infarction versus scarring noted in basal to mid inferior inferolateral wall without ginger-infarct ischemia. EKG segment will be documented separately. Florian St MD (Electronically Signed) Final Date: 28 March 2020 18:52 S
--- NOTE | 2020-03-26 09:59 | ECG_ITS ---
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 Interpretive Statements NAME OF STUDY: LEXISCAN SESTAMIBI STRESS TEST INDICATION: Chest Pain, NOTE: Please note that this is the electrocardiogram portion of the Lexiscan/Sestamibi stress test. The perfusion scan will be documented separately. DATA: Baseline heart rate was 158 beats per minute. Baseline blood pressure was 126/98 millimeters of mercury. Target heart rate was 148 . Maximum heart rate achieved was 93. which was 62 % of the predicted target heart rate. Maximum blood pressure was 170/116 millimeters of mercury. The reason for ending the test was completion of the protocol. The patient did not experience any symptoms. ELECTROCARDIOGRAM: BASELINE: Sinus rhythm. Normal axis. Old anterior wall myocardial infarction otherwise, no ST-T changes suggestive of ischemia noted. No arrhythmia noted. EXERCISE: After Lexiscan injection, no ST-T changes suggestive of ischemic noted. No arrhythmia noted. CONCLUSION: Please note due to baseline abnormality of the EKG specificity and sensitivity of the EKG portion of LexiScan MIBI stress test will be low 1. EKG not suggestive of ischemia 2. Lexiscan injection unremarkable. 3. Perfusion scan will be documented separately. Electronically Signed On 03-27-2020 19:14:[address] M.D. https://[employer] Networksasht[facility].[employer]/store/OM/[id number]
[2020-03-26 12:23] VITALS: BP 134/99; PULSE 78
[2020-03-26] MEDS: ondansetron 2 mg/ML SDV 2 mL 4 MG IVP (12:23)
[2020-03-26] MEDS: regadenoson 0.4 Mg/5 ml Syringe IVP (12:23)
== END 2020-03-26 09:40 | disposition home or self-care (01) ==
PROVIDERS: PCP Nurse Practitioner; Visit Provider Internal Medicine Cardiovascular Disease
DX: R07.9 Chest pain, unspecified (principal); R74.8 Abnormal levels of other serum enzymes
CPT/HCPCS: 78452; 93017; 96374; A9500; J2405; J2785

== ENCOUNTER 2020-04-24 15:00 | Outpatient (CLI) | payer OTHER, SELFPAY ==
--- NOTE | 2020-04-24 15:05 | CT_ITS ---
WS: [id number] CT CHEST TECHNIQUE: Noncontrast CT of the chest with coronal and sagittal reformatted images. CLINICAL INFORMATION: LUNG NODULES COMPARISON: Radiograph January 30, 2020 DLP: 1026.[address] scans at [facility] use at least one of these dose optimization techniques: automat ed exposure control; mA and/or kV adjustment per patient size (includes targeted exams where dose is matched to clinical indication); or iterative reconstruction. FINDINGS: Mild chronic emphysematous changes. Calcified granulomas. Slight bibasilar atelectasis. Tiny hazy 5 m m subpleural nodule in the right upper lobe. No other noncalcified pulmonary parenchymal abnormalitie s. Calcified right hilar nodes. No acute pulmonary infiltrates. No focal pneumonia. Thyroid gland is normal. Tortuous thoracic aorta with mild aortic calcification. No axillary lymphade nopathy. Adrenal glands are normal. Small esophageal hiatal hernia. CT/CT chest wo con [id number] IMPRESSION: 1. Tiny 5 mm subpleural hazy pulmonary nodule in the right upper lobe. Recomme nd 12 month follow-up. 2. No other suspicious pulmonary parenchymal abnormalities. 3. Multiple calcified granulomas correspond to the chest radiograph findings 4. No mediastinal or hilar lymphadenopathy. Calcified paratracheal and right h ilar lymph nodes. 5. No other significant findings.
== END 2020-04-24 15:01 | disposition home or self-care (01) ==
LOC: RADWPI 15:02
PROVIDERS: PCP Nurse Practitioner; Visit Provider Nurse Practitioner
DX: R91.8 Other nonspecific abnormal finding of lung field (principal)
CPT/HCPCS: 71250

== ENCOUNTER → 2020-05-18 11:10 | Outpatient (BNVA) | payer OTHER, MEDICARE, SELFPAY | PROVIDERS: PCP Nurse Practitioner; Visit Provider Internal Medicine Cardiovascular Disease | DX: N18.4 Chronic kidney disease, stage 4 (severe) (principal) | CPT/HCPCS: 80048; 85025 ==

== ENCOUNTER 2020-06-07 12:46 | Outpatient (CLI) | payer OTHER, MEDICARE, SELFPAY ==
--- NOTE | 2020-06-07 14:15 | USCV_ITS ---
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 Dr Jed Westbrook MD [facility] (Electronically Signed) Final Date: 08 June 2020 09:35 S
== END 2020-06-07 12:47 | disposition home or self-care (01) ==
LOC: RAD 12:49
PROVIDERS: PCP Nurse Practitioner; Visit Provider Internal Medicine Cardiovascular Disease
DX: I73.9 Peripheral vascular disease, unspecified (principal)
CPT/HCPCS: 93922

== ENCOUNTER 2020-07-19 15:41 | Inpatient (IN) | payer OTHER, MEDICARE, SELFPAY ==
[2020-07-19] VITALS (14 sets, daily range): BP systolic 101–142; BP diastolic 57–95; PULSE 67–89; RESP 17–24; TEMP 36.6–36.9; O2SAT 92–96; BMI 32.5
--- NOTE | 2020-07-19 16:06 | XRR_ITS ---
PROCEDURE INFORMATION: Exam: XR Chest, 1 View Exam date and time: 07/19/2020 4:29 PM Age: 74 years old Clinical indication: Cough and dyspnea; Additional info: Dyspnea/cough TECHNIQUE: Imaging protocol: XR of the chest Views: 1 view. COMPARISON: CT chest [facility] [id number] 04/24/2020 3:10 PM FINDINGS: Lungs: Unremarkable. No consolidation. Evidence of antecedent granulomatous disease. Pleural space: Unremarkable. No pleural effusion. No pneumothorax. Heart/Mediastinum: Cardiac size upper limits of normal. Arteriosclerosis. Bones/joints: Unremarkable. XR/XR chest 1V portable [id number] IMPRESSION: Nonacute.
--- NOTE | 2020-07-19 16:07 | ECG_ITS ---
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
[2020-07-19 16:30] LABS: Basophils # 0.1 10^3/uL (0.0-0.1); Basophils % 0.7 %; Eosinophils # 0.1 10^3/uL (0.0-0.8); Eosinophils % 1.3 %; Hematocrit 43.4 % (42.0-52.0); Hemoglobin 13.9 g/dL (11.7-16.6); Lymphocytes # 1.6 10^3/uL (0.8-4.8); Lymphocytes % 16.6 %; Mean Corpuscular Hemoglobin 31.9 pg (28.0-34.0); Mean Corpuscular Volume 99.5 fL (80-94); Mean Platelet Volume 9.9 fL (7.4-10.4); Monocytes # 0.9 10^3/uL (0.2-0.9); Monocytes % 8.7 %; Neutrophils # 7.06 10^3/uL (1.8-7.7); Neutrophils % 71.9 %; Nucleated Red Blood Cells % 0 %; Platelet Count 224 10^3/cmm (130-400); Red Blood Count 4.36 10^6/uL (4.1-5.3); White Blood Count 9.8 10^3/uL (4.0-10.0)
[2020-07-19 16:58] LABS: Alanine Aminotransferase 21 U/L (0-41); Albumin Level 4.6 g/dL (3.5-5.2); Alkaline Phosphatase 135 IU/L (40-130); Anion Gap 21.7 (5-19); Aspartate Amino Transferase 26 U/L (0-40); Blood Urea Nitrogen 55 mg/dL (8-23); Calcium 9.5 mg/dL (8.5-10.5); Carbon Dioxide 20 mmol/L (22-29); Chloride 101 mmol/L (98-107); Globulin 2.7 g/dL (1.3-4.6); Glucose 100 mg/dL (65-115); Osmolality Calculated 301 mOsm/kg (285-295); Potassium 4.7 mmol/L (3.5-5.1); Sodium 138 mmol/L (136-145); Total Bilirubin 0.6 mg/dL (0.15-1.2); Total Protein 7.3 g/dL (6.6-8.7)
[2020-07-19 17:01] LABS: Troponin(5th) Baseline 20 ng/L (0-15)
[2020-07-19] MEDS: sodium chloride 0.9% 500 ML 999 ML IV (17:09)
--- NOTE | 2020-07-19 17:10 | W.ED.SYNCOPE ---
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 Phosphata se (40-130) IU/L Troponin T Baselin e (0-15) ng/L Troponin T 120 Min [place] (0-15) ng/L Delta Troponin T (0-10) ABS# Troponin T Hi Sens 6Hr (0-15) ng/L Troponin T Hi Sens 6Hr Delta (0-12) ng/L Total Protein (6.6-8.7) g/dL Albumin (3.5-5.2) g/dL Globulin (1.3-4.6) g/dL Urine Color (Yellow) Urine Appearance (CLEAR) Urine pH (5-7) Ur Specific Gravit y (1.005-1.030) Urine Protein (Negative) Urine Glucose (UA) (Normal) Urine Ketones (Negative) Urine Blood (Negative) Urine Nitrate (Negative) Urine Bilirubin (Negative) Urine Urobilinogen (Negative) mg/dL Ur Leukocyte Gloria ase (Negative) Urine RBC (0-2) /hpf Urine WBC (0-5) /hpf Ur Squamous Epith Cells (0-5) /hpf Amorphous Sediment Urine Bacteria (NONE) /hpf Fine Granular Cast s /lpf Urine Mucus /hpf Urine Opiates Scre en (Negative) ng/mL Ur Barbiturates Sc reen (Negative) ng/mL Ur Phencyclidine S crn (Negative) ng/mL Ur Amphetamines Sc reen (Negative) ng/mL U Benzodiazepines Scrn (Negative) ng/mL Urine Cocaine Scre en (Negative) ng/mL U Marijuana (THC) Screen (Negative) ng/mL Ethyl Alcohol (0-10) mg/dL Imaging Data^: CXR: Attestation: I personally reviewed and interpreted this imaging study as follows: My impression: No acute cardiopulmonary findings. CT Head: Radiologist's impression: [place] [address] CT Scan Report Signed Patient: Jaden Cervantes Unit #: [id number] : 1945 Age/Sex: 74 / M ADM Date: 07/19/20 Loc: ER Room/Bed: Attending Dr: Ordering Provider/Ordering MD: Torin Avelar MD, [facility] [place] Date of Service: 07/19/20 Procedure(s): CT head wo con* [id number] Accession Number(s): [id number] Report Number: [id number] PROCEDURE INFORMATION: Exam: CT Head Without Contrast Exam date and time: 07/19/2020 6:55 PM Age: 74 years old Clinical indication: Syncope and collapse; Patient HX: Scan x 2 due to patient motion TECHNIQUE: Imaging protocol: Computed tomography of the head without contrast. Radiation optimization: All CT scans at this facility use at least one of these dose optimization techniques: automated exposure control; mA and/or kV adjustment per patient size (includes targeted exams where dose is matched to clinical indication); or iterative reconstruction. COMPARISON: No relevant prior studies available. RADIATION DOSE METRICS: Total DLP (mGy-cm): 1475.87 FINDINGS: Brain: No evidence of active or acute intracranial pathologic process, hemorrhage, or trauma. 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 Antecedent lacunar infarctions of the centrum semi ovale. Antecedent right thalamic lacunar infarction. Old right anterior limb internal capsule lacunar infarction. No mass effect. No midline shift. Cerebral and cerebellar atrophy with ventricular dilatation advanced for patient's chronological age. Cerebral ventricles: No ventriculomegaly. Bones/joints: Unremarkable. No acute fracture. Paranasal sinuses: Visualized sinuses are unremarkable. No fluid levels. Mastoid air cells: Visualized mastoid air cells are well aerated. Soft tissues: Unremarkable. CT/CT head wo con* [id number] IMPRESSION: 1. No evidence of active or acute intracranial pathologic process, hemorrhage, or trauma. 2. 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 3. Antecedent lacunar infarctions. 4. Cerebral and cerebellar atrophy with ventricular dilatation advanced for patient's chronological age. Radiation Dose CTDIVOL = (mGy): DLP = 1475.87 (mGy-cm) Dictated By: Rosalio Madison Signed By: Rosalio Madison Signed Date/Time: 07/19/201930 DD/ 29 CT Abd/Pel: Radiologist's impression: [address] [address] [address] Scan Report Signed Patient: Jaden Cervantes Unit #: [id number] : 1945 Age/Sex: 74 / M ADM Date: 07/19/20 Loc: ER Room/Bed: Attending Dr: Ordering Provider/Ordering MD: Torin Avelar MD, [facility] [place] Date of Service: 07/19/20 Procedure(s): CT abdomen pelvis wo con [id number] Accession Number(s): [id number] Report Number: [id number] PROCEDURE INFORMATION: Exam: CT Abdomen And Pelvis Without Contrast Exam date and time: 07/19/2020 6:56 PM Age: 74 years old Clinical indication: Mass, lump, or swelling; Abdominal pain; Prior surgery; Surgery type: Hernia; Additional info: Abd pain TECHNIQUE: Imaging protocol: Computed tomography of the abdomen and pelvis without contrast. Radiation optimization: All CT scans at this facility use at least one of these dose optimization techniques: automated exposure control; mA and/or kV adjustment per patient size (includes targeted exams where dose is matched to clinical indication); or iterative reconstruction. COMPARISON: CT abdomen pelvis con [id number] 04/13/2018 11:05 AM RADIATION DOSE METRICS: Total DLP (mGy-cm): 1347.79 FINDINGS: Lungs: Limited assessment of the lung bases fails to reveal evidence for active cardiopulmonary process. Coronary artery disease. Calcified mitral annulus. No visible pericardial effusion. Liver: Unremarkable. No mass. Gallbladder and bile ducts: Normal. No calcified stones. No ductal dilation. Pancreas: Unremarkable. No ductal dilation. Spleen: Normal. No splenomegaly. Adrenal glands: Unremarkable. No mass. Kidneys and ureters: Very tiny focus of nonobstructing calyceal nephrolithiasis equator right kidney under 2 mm. No hydronephrosis. No visible ureterolithiasis. Stomach and bowel: Extensive diverticulosis coli, most advanced in the sigmoid colon, without visible evidence of acute diverticulitis. Nonobstructive bowel pattern. No visible adynamic or reactive ileus. Appendix: The appendix is visualized and appears noninflamed. Intraperitoneal space: No visible evidence of mesenteric lymphadenitis or active mesenteritis/panniculitis. Vasculature: Mild fusiform aneurysmal dilatation of the distal abdominal aorta over length of 5.6 cm with a maximum AP diameter in transverse diameter of 3.8 cm. Moderate arterial sclerotic disease. No significant overall change since 04/13/2018. Lymph nodes: No current visible evidence of active mesenteric or retroperitoneal lymphadenopathy. Urinary bladder: Unremarkable as visualized. Reproductive: Mild prostate hypertrophy. Bones/joints: Advanced degenerative disease degenerative disc disease L5/S1. Soft tissues: Unremarkable. Other findings: Obesity. CT/CT abdomen pelvis con [id number] IMPRESSION: 1. Currently no visible evidence of acute abdominal or pelvic pathologic process. 2. Very tiny focus of nonobstructing calyceal nephrolithiasis equator right kidney under 2 mm. 3. Extensive diverticulosis coli without evidence for acute diverticulitis. 4. Stable mild fusiform aneurysmal dilatation of the distal abdominal aorta. 5. Other nonurgent, nonemergent, chronic, and age related findings as detailed in text above. Radiation Dose CTDIVOL = (mGy): DLP = 1347.79 (mGy-cm) Dictated By: Rosalio Madison Signed By: Rosalio Madison Signed Date/Time: 07/19/201941 DD/ 40 Discharge Plan Discharge Patient Disposition: Placed in Observation Admit Provider: Jayda Jarquin Clinical Impression: Acute on chronic kidney failure Syncope Qualifiers: Syncope type: unspecified Qualified Code(s): R55 - Syncope and collapse Condition: Stable Referrals: Florian St MD [Physician] - 7-10 days ([facility] [place] [facility] [place] you Thursday with an appointment. If you don't hear from them please call [phone]) Sabina Yeh FNP [Primary Care Provider] - 4-7 days (Please call your primary care provider and set up an appointment to be seen in 4-7 days. [phone]) Discharge Diet: Cardiac Discharge Activity: Increase activity as tolerated Patient Instructions: Chronic Kidney Disease (GEN) Additional Instructions: Stay hydrated. Avoid NSAIDs. Hold Lipitor for now. Discharge Date/Time: 07/19/20 21:49 Sign Out Sign Out Data: Patient Sign Out occurred on 07/19/20 at 19:04. Patient's care was discussed, and care was transferred from to Michelle Razo [facility]. Coding Level of Care Code ED Physician Neonatology for Chg Fwd Exam Comprehensive
[2020-07-19] MEDS: ondansetron 2 mg/ML SDV 2 mL 4 MG IVP (17:15)
[2020-07-19 17:39] LABS: Add Urine Microscopic? YES; Bilirubin Urine Neg (Negative); Blood Urine Trace (Negative); Glucose Urine UA Norm (Normal); Ketones Urine 1+ (Negative); Leukocyte Esterase Urine Negative (Negative); Nitrate Urine Negative (Negative); Protein Urine Neg (Negative); Specific Gravity, Urine 1.025 (1.005-1.030); Urine Appearance Clear (CLEAR); Urine Color Yellow (Yellow); Urobilinogen Urine 1 mg/dL (Negative); pH Urine 5 (5-7)
[2020-07-19 17:41] LABS: Add Urine Culture? Yes; Bacteria Urine 2+ /hpf; Fine Granular Casts Urine 0-4 /lpf; Mucus Urine 2+ /hpf; RBC Urine 0-4 /hpf (0-2); Squamous Epithelial Cell Urine 0-4 /hpf (0-5); WBC Urine 0-4 /hpf (0-5)
--- NOTE | 2020-07-19 18:07 | ECG_ITS ---
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1945 Requested By: Samuel Carreon Order Number: [id number] Reading MD: GANESH BELL Measurements Intervals [place] Rate: 84 P: 64 CT: 162 QRS: 19 QRSD: 101 T: 7 QT: 388 QTc: 460 Interpretive Statements SINUS RHYTHM NONSPECIFIC T-WAVE ABNORMALITY Compared to ECG 07/19/2020 15:59:11 T-wave abnormality now present Ventricular premature complex(es) no longer present Electronically Signed On 07-20-2020 18:24:09 CDT by GANESH BELL [email or web address] river county hospitalVonagepark[facility].[employer]/store/NU/[id number] f
--- NOTE | 2020-07-19 18:36 | CTR_ITS ---
PROCEDURE INFORMATION: Exam: CT Head Without Contrast Exam date and time: 07/19/2020 6:55 PM Age: 74 years old Clinical indication: Syncope and collapse; Patient HX: Scan x 2 due to patient motion TECHNIQUE: Imaging protocol: Computed tomography of the head without contrast. Radiation optimization: All CT scans at this facility use at least one of these dose optimization techniques: automated exposure control; mA and/or kV adjustment per patient size (includes targeted exams where dose is matched to clinical indication); or iterative reconstruction. COMPARISON: No relevant prior studies available. RADIATION DOSE METRICS: Total DLP (mGy-cm): 1475.87 FINDINGS: Brain: No evidence of active or acute intracranial pathologic process, hemorrhage, or trauma. 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 Antecedent lacunar infarctions of the centrum semi ovale. Antecedent right thalamic lacunar infarction. Old right anterior limb internal capsule lacunar infarction. No mass effect. No midline shift. Cerebral and cerebellar atrophy with ventricular dilatation advanced for patient's chronological age. Cerebral ventricles: No ventriculomegaly. Bones/joints: Unremarkable. No acute fracture. Paranasal sinuses: Visualized sinuses are unremarkable. No fluid levels. Mastoid air cells: Visualized mastoid air cells are well aerated. Soft tissues: Unremarkable. CT/CT head wo con* [id number] IMPRESSION: 1. No evidence of active or acute intracranial pathologic process, hemorrhage, or trauma. 2. 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 3. Antecedent lacunar infarctions. 4. Cerebral and cerebellar atrophy with ventricular dilatation advanced for patient's chronological age. Radiation Dose CTDIVOL = (mGy): DLP = 1475.87 (mGy-cm)
--- NOTE | 2020-07-19 18:36 | CTR_ITS ---
PROCEDURE INFORMATION: Exam: CT Abdomen And Pelvis Without Contrast Exam date and time: 07/19/2020 6:56 PM Age: 74 years old Clinical indication: Mass, lump, or swelling; Abdominal pain; Prior surgery; Surgery type: Hernia; Additional info: Abd pain TECHNIQUE: Imaging protocol: Computed tomography of the abdomen and pelvis without contrast. Radiation optimization: All CT scans at this facility use at least one of these dose optimization techniques: automated exposure control; mA and/or kV adjustment per patient size (includes targeted exams where dose is matched to clinical indication); or iterative reconstruction. COMPARISON: CT abdomen pelvis wo con [id number] 04/13/2018 11:05 AM RADIATION DOSE METRICS: Total DLP (mGy-cm): 1347.79 FINDINGS: Lungs: Limited assessment of the lung bases fails to reveal evidence for active cardiopulmonary process. Coronary artery disease. Calcified mitral annulus. No visible pericardial effusion. Liver: Unremarkable. No mass. Gallbladder and bile ducts: Normal. No calcified stones. No ductal dilation. Pancreas: Unremarkable. No ductal dilation. Spleen: Normal. No splenomegaly. Adrenal glands: Unremarkable. No mass. Kidneys and ureters: Very tiny focus of nonobstructing calyceal nephrolithiasis equator right kidney under 2 mm. No hydronephrosis. No visible ureterolithiasis. Stomach and bowel: Extensive diverticulosis coli, most advanced in the sigmoid colon, without visible evidence of acute diverticulitis. Nonobstructive bowel pattern. No visible adynamic or reactive ileus. Appendix: The appendix is visualized and appears noninflamed. Intraperitoneal space: No visible evidence of mesenteric lymphadenitis or active mesenteritis/panniculitis. Vasculature: Mild fusiform aneurysmal dilatation of the distal abdominal aorta over length of 5.6 cm with a maximum AP diameter in transverse diameter of 3.8 cm. Moderate arterial sclerotic disease. No significant overall change since 04/13/2018. Lymph nodes: No current visible evidence of active mesenteric or retroperitoneal lymphadenopathy. Urinary bladder: Unremarkable as visualized. Reproductive: Mild prostate hypertrophy. Bones/joints: Advanced degenerative disease degenerative disc disease L5/S1. Soft tissues: Unremarkable. Other findings: Obesity. CT/CT abdomen pelvis wo con [id number] IMPRESSION: 1. Currently no visible evidence of acute abdominal or pelvic pathologic process. 2. Very tiny focus of nonobstructing calyceal nephrolithiasis equator right kidney under 2 mm. 3. Extensive diverticulosis coli without evidence for acute diverticulitis. 4. Stable mild fusiform aneurysmal dilatation of the distal abdominal aorta. 5. Other nonurgent, nonemergent, chronic, and age related findings as detailed in text above. Radiation Dose CTDIVOL = (mGy): DLP = 1347.79 (mGy-cm)
[2020-07-19] MEDS: sodium chloride 0.9% 1,000 ML 999 ML IV (19:24)
[2020-07-19 20:27] LABS: Troponin 5 2HR 16.88 ng/L (0-15)
[2020-07-19] MEDS: sodium chloride 0.9% 1,000 ML 100 ML IV (20:32)
[2020-07-19 20:38] LABS: Troponin 5 2HR Delta -3.12 ABS# (0-10)
[2020-07-19 21:57] LABS: Troponin 5 6HR 17.09 ng/L (0-15)
[2020-07-19 22:07] LABS: Alcohol Level < 10 mg/dL (0-10); Troponin 5 6HR Delta -2.91 ng/L (0-12)
--- NOTE | 2020-07-19 22:07 | ECG_ITS ---
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
--- NOTE | 2020-07-19 22:53 | P.HP_ITS ---
Providers/Chief Complaint Admitting Physician: Jayda Jarquin Primary Care Provider: ANEESH Reynolds Chief Complaint: Blacking out History of Present Illness 74-year-old with a past medical history significant for chronic diastolic heart failure, hypertension, chronic kidney disease, COPD, diabetes mellitus who has presented to the hospital after he had multiple episodes of syncope. 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 He apparently woken up in a ditch and noted incontinence of urine. He cannot recall any symptoms prior to episode. Denies any recent chest pain or shortness of breath. Upon arrival to emergency room patient's initial laboratory workup showed a WBC of 9.8, hemoglobin of 13.9, hematocrit 43.4 and a platelet count of 224. sodium 138, potassium 4.7, chloride 101, bicarb 20, BUN 55 and creatinine of 3.4. It appears the patient's baseline creatinine is between 2.2 and 2.4. Imaging studies in ER included a Head CT which showed old lacunar infarcts. Had noted abdominal pain to ER however denied this on my eval. CT abdomen pelvis was done which did not show any acute abnormality however incidently noted to have a distal abdominal aorta 3.8 cm in size. Patient was admitted to the hospital for further work up. Review of Systems General: Reports: 10 or more systems reviewed and unremarkable except in HPI and below Medications/Allergies Home Medications Medication Instructions Recorded Confirmed Last Taken Type aspirin 81 mg tablet,delayed 162 mg PO DAILY #180 tab 03/07/20 07/19/20 07/19/20 Rx release atorvastatin 40 mg tablet 80 mg PO DAILY #180 tab 03/07/20 07/19/20 07/19/20 Rx carvedilol 12.5 mg tablet 12.5 mg PO Q12H #180 tab 03/07/20 07/19/20 07/19/20 Rx isosorbide mononitrate 30 mg 30 mg PO DAILY #90 tab 03/07/20 07/19/20 07/19/20 Rx tablet,extended release 24 hr nitroglycerin 0.4 mg sublingual 0.4 mg SUBLINGUAL Q5M PRN #25 tab 03/07/20 07/19/20 Unknown Rx tablet amlodipine 5 mg tablet 5 mg PO BID #180 tab 05/22/20 07/19/20 07/19/20 Rx Allergies Allergy/AdvReac Type Severity Reaction Status Date / Time serazone Allergy Mild ALGY-Rash Uncoded 05/18/20 10:31 PFSH Acute PFSH: Medical History CAD (coronary artery disease) CHF (congestive heart failure) COPD (chronic obstructive pulmonary disease) Diabetes mellitus Hypertension Markedly elevated on admission. With medication adjustments this is much improved. Currently on Norvasc, carvedilol and Imdur will be added on discharge Social History Smoking and tobacco status: current some day smoker Vitals/I&O/Wt Last Vital Signs Temp 98.2 F 07/20/20 04:00 Pulse 90 07/20/20 04:00 Resp 18 07/20/20 04:00 BP 165/70 07/20/20 04:00 Pulse Ox 94 07/20/20 02:00 07/19/20 07/19/20 07/20/20 14:59 22:59 06:59 Intake Total 1500 / 1500 Balance 1500 / 1500 Weight last 48 hrs Weight 99.79 kg Physical Exam Narrative: EXAM NARRATIVE: General: Alert, awake oriented x 3 NAD HEENT : NC/AT, unremarkable CVS : Regular rate CHEST: Clear to auscultation ABD: Soft NT/ND Ext : no edema Data : 07/19/20 16:15 07/19/20 16:15 A&P Assessment and plan (1) Syncope: No prior hx of syncope Obtain ECHO Monitor on tele May consider EEG Head CT - old lacunar infarct Consider cardiology consult Status: Acute Qualifiers: Syncope type: unspecified Qualified Code(s): R55 - Syncope and collapse (2) Acute on chronic kidney failure: Baseline creatinine 2.4 Increased to 3.4 Cautious fluid hydration Repeat BMP in am Hold all nephrotoxic drugs. Status: Acute Qualifiers: Acute renal failure type: unspecified Chronic kidney disease stage: unspecified stage Qualified Code(s): N17.9 - Acute kidney failure, unspecified; N18.9 - Chronic kidney disease, unspecified (3) Abdominal aneurysm without mention of rupture: Stable - reported on CT abd Pelvis at 3.8cm Out patient monitoring Status: Acute Attestations Medical Necessity Statement*: Will require hospitalization for work up of syncopal events. Anticipate less than 2 midnight stay in hospital. Time Spent in Patient Care: Greater than 35 minutes Coding Level of Care Code Acute Outbound Telemarketing Representative for Chg Fwd Diagnoses Syncope R55 Syncope type: unspecified Acute on chronic kidney failure N17.9; N18.9 Acute renal failure type: unspecified Chronic kidney disease stage: unspecified stage Abdominal aneurysm without mention of rupture I71.4
[2020-07-20] VITALS (8 sets, daily range): BP systolic 120–165; BP diastolic 62–80; PULSE 69–94; RESP 16–20; TEMP 36.6–37; O2SAT 90–100
[2020-07-20 00:10] LABS: Amphetamines Screen Urine Negative (Negative); Barbiturates Screen Urine Negative (Negative); Benzodiazepines Screen Urine Negative (Negative); Cocaine Screen Urine Negative (Negative); Opiate Screen Urine Negative (Negative); PCP Screen Urine Negative (Negative); THC Screen Urine Negative (Negative)
--- NOTE | 2020-07-20 00:34 | USCV_ITS ---
Jaden Ceravntes Age: 74 Gender: M : 1945 Exam Date: 07/20/2020 07:03 Ordering Phys: Jayda Jarquin MD Technologist: Cas Mckoy Exam Location: [place] Indication: hx mi BP: 143 / 83 HR: 75 Rhythm: Sinus Technical Quality: Fair MEASUREMENTS (Male / Female) Normal Values 2D ECHO LV Diastolic Diameter PLAX 4.1 cm 4.2 - 5.9 / 3.9 - 5.3 cm LV Systolic Diameter PLAX 2.8 cm IVS Diastolic Thickness 1.2 cm 0.6 - 1.0 / 0.6 - 0.9 cm IVS Systolic Thickness 1.4 cm LVPW Diastolic Thickness 1.2 cm 0.6 - 1.0 / 0.6 - 0.9 cm LVPW Systolic Thickness 1.2 cm LVOT Diameter 2.0 cm LV Ejection Fraction 2D Teich 59.9 % LV Ejection Fraction MOD 2C 59.7 % LV Ejection Fraction 2C AL 61.7 % LA Diameter 4.3 cm LA Width 4.7 cm LA Height 5.5 cm RA Width 4.4 cm RA Height 4.9 cm Aorta at Sinotubular Diameter 0.9 cm M-MODE LV Diastolic Diameter MM 4.3 cm 4.2 - 5.9 / 3.9 - 5.3 cm LV Systolic Diameter MM 2.8 cm LV Ejection Fraction MM Teich 65.5 % IVS Diastolic Thickness MM 1.6 cm 0.6 - 1.0 / 0.6 - 0.9 cm IVS Systolic Thickness MM 2.1 cm LVPW Diastolic Thickness MM 1.5 cm 0.6 - 1.0 / 0.6 - 0.9 cm LVPW Systolic Thickness MM 1.9 cm RV Diastolic Diameter MM 3.8 cm Aortic Annulus Diameter 3.8 cm LA Ao Ratio MM 1.3 MV E Point Septal Separation 0.9 cm DOPPLER AV Peak Velocity 142.0 cm/s LVOT Peak Velocity 105.0 cm/s AV Area Cont Eq vti 2.0 cm squared AV Area Cont Eq pk 2.3 cm squared MV Area PHT 5.0 cm squared Mitral E to A Ratio 0.9 MV E' Velocity 59.0 cm/s Mitral E to MV E' Ratio 17.7 Mitral E to LV E' Lateral Ratio 16.9 Mitral E to LV E' Septal Ratio 18.6 TR Peak Velocity 141.0 cm/s TR Peak Gradient 8.0 mmHg TV Peak E Velocity 85.0 cm/s Right Atrial Pressure 3.0 mmHg Pulmonary Artery Systolic Pressu 11.0 mmHg PV Peak Velocity 108.0 cm/s FINDINGS Left Ventricle Normal left ventricular cavity size. No regional wall motion abnormalities. Normal left ventricular systolic function. Left ventricular ejection fraction is estimated at 65 %. Grade I/IV diastolic dysfunction (abnormal relaxation filling pattern), normal to mildly elevated filling pressures. Right Ventricle The right ventricle is normal in size and function. Right Atrium The right atrium is normal in size. Left Atrium The left atrium is normal in size. Mitral Valve Mildly thickened mitral valve. Moderate mitral annular calcification. No mitral valve stenosis. No mitral valve regurgitation. Aortic Valve Moderate aortic valve calcification. No aortic valve stenosis. Mild aortic valve regurgitation. Tricuspid Valve Structurally normal tricuspid valve without significant stenosis or regurgitation. Pulmonary artery systolic pressure is normal. Pulmonic Valve Structurally normal pulmonic valve without significant stenosis. There is no pulmonic regurgitation. Pericardium Normal pericardium without effusion. Aorta Normal ascending aorta dimension. CONCLUSIONS 1-Normal left ventricular cavity size. No regional wall motion abnormalities. Normal left ventricular systolic function. Left ventricular ejection fraction is estimated at 65 %. Grade I/IV diastolic dysfunction (abnormal relaxation filling pattern), normal to mildly elevated filling pressures. 2-Mildly thickened mitral valve. Moderate mitral annular calcification. No mitral valve stenosis. No mitral valve regurgitation. 3-Moderate aortic valve calcification. No aortic valve stenosis. Mild aortic valve regurgitation. 4-There is no pericardial effusion. 5-Pulmonary artery systolic pressure is within normal limits. 6-Right atrial pressure is around 5 mm of mercury. 7-No significant change since the prior echocardiogram study of 02/01/2020. Florian St MD (Electronically Signed) Final Date: 20 July 2020 15:27 S
[2020-07-20] MEDS: heparin 5,000 unit/mL INJ 1 mL 5000 UNIT SUBCUT ×2 (01:42→12:04)
[2020-07-20] MEDS: carvedilol 12.5 mg Tablet PO ×2 (01:43→12:04)
[2020-07-20] MEDS: HYDROcodone-acetaminophen 5-325 mg Tablet 1 TAB PO (01:43)
[2020-07-20] MEDS: sodium chloride 0.9% 1,000 ML 75 ML IV ×2 (01:46→17:28)
[2020-07-20 06:35] LABS: Anion Gap 19.4 (5-19); Blood Urea Nitrogen 56 mg/dL (8-23); Calcium 8.6 mg/dL (8.5-10.5); Carbon Dioxide 19 mmol/L (22-29); Chloride 107 mmol/L (98-107); Glucose 74 mg/dL (65-115); Osmolality Calculated 306 mOsm/kg (285-295); Potassium 4.4 mmol/L (3.5-5.1); Sodium 141 mmol/L (136-145)
[2020-07-20 07:30] LABS: Basophils # 0.1 10^3/uL (0.0-0.1); Basophils % 0.8 %; Eosinophils # 0.9 10^3/uL (0.0-0.8); Hematocrit 37.5 % (42.0-52.0); Lymphocytes # 2.3 10^3/uL (0.8-4.8); Lymphocytes % 21.8 %; Mean Platelet Volume 10.2 fL (7.4-10.4); Monocytes % 9.9 %; Neutrophils # 6.03 10^3/uL (1.8-7.7); Neutrophils % 58.2 %; Nucleated Red Blood Cells % 0 %; Platelet Count 190 10^3/cmm (130-400); Red Blood Count 3.75 10^6/uL (4.1-5.3); Red Cell Distribution Width 13.2 % (12.1-15.1); White Blood Count 10.3 10^3/uL (4.0-10.0)
[2020-07-20] MEDS: amlodipine 5 mg Tablet PO ×2 (09:03→17:28)
[2020-07-20] MEDS: isosorbide mononitrate ER 30 mg Tablet PO (09:03)
[2020-07-20] MEDS: aspirin 81 mg EC Tablet 162 MG PO (09:03)
[2020-07-20] MEDS: atorvastatin 40 mg Tablet 80 MG PO (09:03)
[2020-07-20] MEDS: famotidine 20 mg Tablet PO ×2 (09:03→17:28)
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
--- NOTE | 2020-07-20 11:53 | PC.CHAP ---
Pastoral Care Encounter/Spiritual Assessment Type of Contact [] Declined principal architectural firm visit [] Patient/Family/Request visit [] Outpatient visit [] Follow-up visit [] Physician referral [] Code/Alert [] Routine visit [] Staff referral [] Actively dying [xx] Patient sleeping [] Family support [] [] Out of room [] Palliative care [] [] Receiving care in room [] Pre-surgical visit [] Trauma [] Long length of stay [] ICU visit [xx] Other: Patient sedated Relational/Emotional Strength [] Patient feels connected with others/family/visitors/staff [] Distress [] Loneliness/isolation [] Abandonment Spirituality of Patient [] Person of Cassie [] Attends Taoist of their Cassie [] Believes in Prayer [] Reads Bible or Mandaeism materials [] There are Spiritual issues to be addressed Gi Tech Interventions [] Prayer [] Active listening [] Non-anxious presence [] Spiritual/emotional support [] Crisis/trauma care [] Spiritual counseling [] Bereavement support [] Provided bereavement packet [] Provided Bible/devotional materials [] Provided toy/stuffed animal, coloring book to patient or family member [] Provided Communion [] Anointing/[place] [] Salvation [] Completed spiritual assessment [] Other: Impact on Illness or Injury [] Angry [] Fearful [] Anxious [] Often cries [] Exhaustion [] Unable to work [] Unable to attend sabianism [] Unable to walk/stand [] Unable to read [] Unable to drive [] Unable to eat/drink [] Unable to sleep [] Unable to be with family [] Patient intubated [] Other: Summary Follow up needed Time spent with patient Gi Tech Cookie Underwood
--- NOTE | 2020-07-20 16:50 | PC.RESP ---
Smoking Cessation and Pulmonary Rehab information sent to patient.
[2020-07-20] MEDS: acetaminophen 325 mg Tablet 650 MG PO (19:57)
[2020-07-20 21:25] LABS: Glucose Point of Care 126 mg/dL (70-110)
[2020-07-21] VITALS: BP 147/89; PULSE 71; RESP 18; TEMP 37; O2SAT 93
[2020-07-21] MEDS: carvedilol 12.5 mg Tablet PO ×2 (00:17→12:43)
[2020-07-21] MEDS: heparin 5,000 unit/mL INJ 1 mL 5000 UNIT SUBCUT ×2 (00:18→12:43)
[2020-07-21 04:00] VITALS: BP 144/79; PULSE 74; RESP 18; TEMP 36.8; O2SAT 94
[2020-07-21 05:44] LABS: Basophils # 0.1 10^3/uL (0.0-0.1); Basophils % 1.1 %; Eosinophils # 1.5 10^3/uL (0.0-0.8); Eosinophils % 18.3 %; Hematocrit 39.1 % (42.0-52.0); Hemoglobin 12.5 g/dL (11.7-16.6); Lymphocytes # 2.3 10^3/uL (0.8-4.8); Lymphocytes % 29.1 %; Mean Corpuscular Hemoglobin 31.8 pg (28.0-34.0); Mean Corpuscular Volume 99.5 fL (80-94); Monocytes # 0.8 10^3/uL (0.2-0.9); Monocytes % 9.9 %; Neutrophils # 3.26 10^3/uL (1.8-7.7); Neutrophils % 41.2 %; Nucleated Red Blood Cells % 0 %; Platelet Count 178 10^3/cmm (130-400); Red Blood Count 3.93 10^6/uL (4.1-5.3); Red Cell Distribution Width 13.1 % (12.1-15.1); White Blood Count 7.9 10^3/uL (4.0-10.0)
[2020-07-21 06:19] LABS: Anion Gap 13.2 (5-19); Blood Urea Nitrogen 40 mg/dL (8-23); Calcium 8.9 mg/dL (8.5-10.5); Carbon Dioxide 22 mmol/L (22-29); Chloride 110 mmol/L (98-107); Glucose 101 mg/dL (65-115); Osmolality Calculated 302 mOsm/kg (285-295); Phosphorus 2.5 mg/dL (2.5-4.5); Potassium 4.2 mmol/L (3.5-5.1); Sodium 141 mmol/L (136-145); Thyroid Stimulating Hormone 1.62 uIU/mL (0.27-4.20)
[2020-07-21 06:20] LABS: Uric Acid 6.6 mg/dL (3.4-7.0)
[2020-07-21 06:23] LABS: Creatine Phosphokinase 501 U/L (39-308)
[2020-07-21] MEDS: sodium chloride 0.9% 1,000 ML 75 ML IV (06:25)
[2020-07-21 07:16] LABS: Glucose Point of Care 114 mg/dL (70-110)
[2020-07-21 08:00] VITALS: BP 149/87; PULSE 71; RESP 18; TEMP 36.5; O2SAT 95
[2020-07-21] MEDS: atorvastatin 40 mg Tablet 80 MG PO (08:57)
[2020-07-21] MEDS: isosorbide mononitrate ER 30 mg Tablet PO (08:57)
[2020-07-21] MEDS: amlodipine 5 mg Tablet PO (08:57)
[2020-07-21] MEDS: famotidine 20 mg Tablet PO (08:57)
[2020-07-21] MEDS: aspirin 81 mg EC Tablet 162 MG PO (08:57)
[2020-07-21 11:16] LABS: Glucose Point of Care 108 mg/dL (70-110)
[2020-07-21 12:00] VITALS: BP 111/89; PULSE 89; RESP 18; TEMP 37
--- NOTE | 2020-07-21 12:08 | P.DS_ITS ---
Discharge Providers Date of Admission: 07/20/20 15:40 Date of Discharge: July 21, 2020 Attending Provider at Admission: Jayda Jarquin Attending Provider at Discharge: Elton Grullon MD Primary Care Provider: ANEESH Reynolds Diagnoses at Discharge Discharge Diagnosis (1) Syncope: Status: Acute Qualifiers: Syncope type: unspecified Qualified Code(s): R55 - Syncope and collapse (2) Acute on chronic kidney failure: Status: Chronic Qualifiers: Acute renal failure type: unspecified Chronic kidney disease stage: uns pecified stage Qualified Code(s): N17.9 - Acute kidney failure, unspecified; N18.9 - Chronic kidney disease, unspecified (3) CAD (coronary artery disease): Status: Chronic Qualifiers: Associated angina: angina presence unspecified Coronary Disease- Associated Artery/Lesion type: [place] artery [place] vs. transplanted heart: [place] heart Qualified Code(s): I25.10 - Atherosclerotic heart disease of [place] coronary artery without angina pectoris (4) CHF (congestive heart failure): Status: Chronic Qualifiers: Heart failure chronicity: chronic Heart failure type: diastolic Qualified Code(s): I50.32 - Chronic diastolic (congestive) heart failure (5) COPD (chronic obstructive pulmonary disease): Status: Chronic Qualifiers: COPD type: emphysema Emphysema type: unspecified Qualified Code(s): J43.9 - Emphysema, unspecified (6) Abdominal aneurysm without mention of rupture: Status: Chronic (7) Nicotine dependence, cigarettes, with other nicotine-induced disorders: Status: Chronic Reason for Visit Reason for Visit: Blacking out Hospital Course Hospital Course: Jaden is a 74-year-old white male who presented to the hospital with several syncopal episodes. No chest pain or shortness of breath. Etiology was unclear. He was placed on telemetry. Echocardiogram demonstrated preserved EF, no significant valvular abnormalities and 1/4 diastolic dysfunction. Carotid ultrasound did not demonstrate any flow-limiting stenosis. No significant electrolyte abnormality was found. Renal function was slightly worse than normal, at 3.5. His CK was elevated around 500. He had complained of some global weakness so his statin will be held upon discharge, and can be readdressed at cardiology follow-up. Having said that though, it is unlikely to have been the cause of syncope. He was told not to drive. He was encouraged to hydrate appropriately. An event monitor will be placed at discharge for review by cardiology as well. Physical therapy did work with him in the hospital and he ambulated well on day of discharge without significant dizziness. He did report some chronic dizziness at night, but these episodes of syncope during the day had different symptoms. He was not found to be orthostatic in the hospital. Clear cause of syncope was not found. Physical Exam Narrative: EXAM NARRATIVE: General exam no apparent distress Cardiovascular regular rate and rhythm with a 2/6 soft systolic murmur heard best in the mitral area Lungs clear Abdomen is soft positive bowel sounds Extremities no cyanosis clubbing or edema Discharge Data Data Completed and Pending: Completed Studies During Hospitalization Category Date Time Status CT abdomen pelvis wo con [id number] Stat Cat Scan 07/19/20 18:[address] head wo con* [id number] Urgent Cat Scan 07/19/20 18:36 Completed XR chest 1V malorie ble [id number] Stat Exams 07/19/20 16:06 Completed CV carotid duplex BI* [id number] Routine Ultrasound 07/21/20 18:55 Completed CV echo complete* [id number] Routine Ultrasound 07/20/20 00:34 Completed Pending at discharge Category Date Time Status Urine Culture Sta t Lab 07/19/20 17:03 Results Labs from last 24 hours 07/21/20 07/21/20 07/21/20 11:10 07:02 05:20 WBC 7.9 RBC 3.93 L Hgb 12.5 Hct 39.1 L MCV 99.5 H MCH 31.8 MCHC 32.0 RDW 13.1 Plt Count 178 MPV 10.0 Neut % (Auto) 41.2 Lymph % (Auto) 29.1 [place] % (Auto) 9.9 Eos % (Auto) 18.3 Baso % (Auto) 1.1 Neut # (Auto) 3.26 Lymph # (Auto) 2.3 [place] # (Auto) 0.8 Eos # (Auto) 1.5 H Baso # (Auto) 0.1 Nucleated RBC % (a uto) 0 Nucleated RBCs # 0.0 Sodium Potassium Chloride Carbon Dioxide Anion Gap BUN Creatinine GFR Calculation Glucose POC Glucose 108 114 Calculated Osmolal ity Uric Acid Calcium Phosphorus Creatine Kinase TSH 07/21/20 07/21/20 07/20/20 05:20 05:20 21:13 WBC RBC Hgb Hct MCV MCH MCHC RDW Plt Count MPV Neut % (Auto) Lymph % (Auto) [place] % (Auto) Eos % (Auto) Baso % (Auto) Neut # (Auto) Lymph # (Auto) [place] # (Auto) Eos # (Auto) Baso # (Auto) Nucleated RBC % (a uto) Nucleated RBCs # Sodium 141 Potassium 4.2 Chloride 110 H Carbon Dioxide 22 Anion Gap 13.2 BUN 40 H Creatinine 2.7 H GFR Calculation Not Reportable Glucose 101 POC Glucose 126 Calculated Osmolal ity 302 H Uric Acid 6.6 Calcium 8.9 Phosphorus 2.5 Creatine Kinase 501 H* TSH 1.62 Vitals: Last Vital Signs Temp 98.6 F 07/21/20 12:00 Pulse 89 07/21/20 12:00 Resp 18 07/21/20 12:00 BP 111/89 07/21/20 12:00 Pulse Ox 95 07/21/20 08:00 Discharge Plan Discharge Patient Disposition: Home Condition: Stable Prescriptions: Continued carvedilol 12.5 mg tablet 12.5 mg PO Q12H Qty: 180 RF: 3 isosorbide mononitrate 30 mg tablet extended release 24 hr 30 mg PO DAILY Qty: 90 RF: 3 aspirin 81 mg tablet,delayed release (DR/EC) 162 mg PO DAILY Qty: 180 RF: 3 amlodipine 5 mg tablet 5 mg PO BID Qty: 180 RF: 3 Discontinued atorvastatin 40 mg tablet 80 mg PO DAILY Qty: 180 RF: 3 No Action nitroglycerin [Nitrostat] 0.4 mg tablet, sublingual 0.4 mg SUBLINGUAL Q5M PRN (Reason: chest pain) Qty: 25 RF: 6 Discharge Orders: Discharge Order (Routine); Ordered 07/21/20 Ordered By: Elton Grullon Other Ambulatory Orders: [place] cardiac event monitor (Routine) Timeframe: 2 Days Facility: [facility] - Location: Cardiac Diagnostic Laboratory Ordered By: Elton Grullon DME: Jean (Order) Location: None Selected Ordered By: Elton Grullon Referrals: Florian St MD [Physician] - 7-10 days Sabina Yeh FNP [Primary Care Provider] - 4-7 days Discharge Diet: Cardiac Discharge Activity: Increase activity as tolerated Activity Restrictions/Additional Instructions: Stay hydrated. Avoid NSAIDs. Hold Lipitor for now. Discharge Attestations Time Spent in Discharge Care*: greater than 30 min Quality Metrics Clinical Quality Measures During this hospital stay, did patient experience: None Coding Level of Care Code Acute General Claims Agent for [employer] Fwd Diagnoses Syncope R55 Syncope type: unspecified Acute on chronic kidney failure N17.9; N18.9 Acute renal failure type: unspecified Chronic kidney disease stage: unspecified stage CAD (coronary artery disease) I25.10 Associated angina: angina presence unspecified Coronary Disease-Associated Artery/Lesion type: [place] artery [place] vs. transplanted heart: [place] heart CHF (congestive heart failure) I50.32 Heart failure chronicity: chronic Heart failure type: diastolic COPD (chronic obstructive pulmonary disease) J43.9 COPD type: emphysema Emphysema type: unspecified Abdominal aneurysm without mention of rupture I71.4 Nicotine dependence, cigarettes, with other nicotine-induced disorders F17.218
--- NOTE | 2020-07-21 12:52 | PC.CHAP ---
Pastoral Care Encounter/Spiritual Assessment Type of Contact [] Declined laminator preforms visit [] Patient/Family/Request visit [] Outpatient visit [] Follow-up visit [] Physician referral [] Code/Alert [] Routine visit [] Staff referral [] Actively dying [] Patient sleeping [] Family support [] [] Out of room [] Palliative care [] [X] Receiving care in room [] Pre-surgical visit [] Trauma [] Long length of stay [] ICU visit [] Other: Relational/Emotional Strength [] Patient feels connected with others/family/visitors/staff [] Distress [] Loneliness/isolation [] Abandonment Spirituality of Patient [] Person of Cassie [] Attends Jew of their Cassie [] Believes in Prayer [] Reads Bible or Latter-Day materials [] There are Spiritual issues to be addressed Family Assessment Worker Interventions [] Prayer [] Active listening [] Non-anxious presence [] Spiritual/emotional support [] Crisis/trauma care [] Spiritual counseling [] Bereavement support [] Provided bereavement packet [] Provided Bible/devotional materials [] Provided toy/stuffed animal, coloring book to patient or family member [] Provided Communion [] Anointing/[place] [] Salvation [] Completed spiritual assessment [] Other: Impact on Illness or Injury [] Angry [] Fearful [] Anxious [] Often cries [] Exhaustion [] Unable to work [] Unable to attend pentecostal [] Unable to walk/stand [] Unable to read [] Unable to drive [] Unable to eat/drink [] Unable to sleep [] Unable to be with family [] Patient intubated [] Other: Summary Time spent with patient
[2020-07-21 13:58] VITALS: BP 111/89; PULSE 89; RESP 18; TEMP 37
--- NOTE | 2020-07-21 15:55 | PC.NURSE ---
Discharge instructions given voiced full understanding, IV Dc'd cath intact bleeding controlled with 2x2's and coban, to ER entrance via wheelchair to private vehicle with zero difficulty
[2020-07-21 16:00] VITALS: BP 101/76; PULSE 78; RESP 18; TEMP 36.9
--- NOTE | 2020-07-21 18:55 | USR_ITS ---
Arterial ultrasound of the extracerebral carotid and vertebral arteries Clinical indication: Syncope and collapse and other: Vertigo; Additional info: Syncope, vertigo Technique: Real-time ultrasound with weber scale, duplex Doppler, and color flow imaging was performed to evaluate the extracerebral carotid and vertebral arteries. No prior vascular imaging studies are available for correlation at the time of dictation. Findings: Prominent echogenic plaque formation is identified within the visualized carotid arteries. There is normal antegrade flow within the vertebral arteries bilaterally. The peak systolic velocity measurements within the right and left internal carotid arteries are 73 and 74 cm per second respectively. The right systolic velocity ratio is 1.08, while the left systolic velocity ratio is 1.40. These values are well within normal limits. When correlating with NASCET index criteria, no hemodynamically significant stenosis is present. US/CV carotid duplex BI* [id number] Impression: 1. Prominent echogenic plaque formation within the carotid arteries, without hemodynamically significant ICA stensosis. 2. Normal antegradew flow within the vertebral arteries.
== END 2020-07-21 15:55 | disposition home or self-care (01) | DRG 312 ==
LOC: ER 19:04 → MEDSURG 21:27
PROVIDERS: Emergency Medicine; Family Medicine; Hospitalist; Admitting Provider Hospitalist; PCP Nurse Practitioner; Visit Provider Internal Medicine
DX: R55 Syncope and collapse (principal); I13.0 Hypertensive heart and chronic kidney disease with heart failure and stage 1 through stage 4 chronic kidney disease, or unspecified chronic kidney disease; I50.32 Chronic diastolic (congestive) heart failure; N17.9 Acute kidney failure, unspecified; N18.9 Chronic kidney disease, unspecified; I71.4 Abdominal aortic aneurysm, without rupture; I25.10 Atherosclerotic heart disease of native coronary artery without angina pectoris; F17.210 Nicotine dependence, cigarettes, uncomplicated; I25.2 Old myocardial infarction; J43.9 Emphysema, unspecified; R42 Dizziness and giddiness; Z79.82 Long term (current) use of aspirin
CPT/HCPCS: 12345; 36415; 36416; 70450; 71045; 74176; 80048; 80053; 80306; 80307; 81001; 82550; 82962; 84100; 84443; 84484; 84550; 85025; 87086; 93005; 93306; 93880; 96372; 96375; 97110; 97116; 97161; 97165; 99284; G0378; J1644; J2405; J7030; J7040

== ENCOUNTER → 2020-07-26 14:22 | Outpatient (BNVA) | payer OTHER, MEDICARE, SELFPAY | PROVIDERS: PCP Nurse Practitioner; Visit Provider Internal Medicine Cardiovascular Disease | DX: N18.4 Chronic kidney disease, stage 4 (severe) (principal) | CPT/HCPCS: 80048 ==

== ENCOUNTER 2020-11-09 17:01 | Outpatient (CLI) | payer OTHER, MEDICARE, SELFPAY ==
--- NOTE | 2020-11-09 17:44 | XRR_ITS ---
PROCEDURE INFORMATION: Exam: XR Chest, 2 Views Exam date and time: 11/09/2020 5:44 PM Age: 75 years old Clinical indication: Cough TECHNIQUE: Imaging protocol: XR of the chest Views: 2 views. Total images: 2 COMPARISON: CR XR chest 1V portable [id number] 07/19/2020 4:38 PM FINDINGS: Lungs: COPD/chronic bronchitis. No visible active interstitial or alveolar airspace disease. Evidence of antecedent granulomatous disease. Pleural spaces: Unremarkable. No pleural effusion. No pneumothorax. Heart/Mediastinum: Mild cardiomegaly with arteriosclerosis. Bones/joints: Unremarkable. Other findings: Heavy body habitus. XR/XR chest 2V* [id number] IMPRESSION: Nonacute.
== END 2020-11-09 17:02 | disposition home or self-care (01) ==
LOC: LAB 17:10
PROVIDERS: PCP Nurse Practitioner; Visit Provider Specialist
DX: R05 Cough (principal); J31.0 Chronic rhinitis
CPT/HCPCS: 71046; 82785; 86003

== ENCOUNTER → 2020-11-21 14:31 | Outpatient (BNVA) | payer OTHER, SELFPAY | PROVIDERS: PCP Nurse Practitioner; Visit Provider Specialist | DX: Z01.812 Encounter for preprocedural laboratory examination (principal); Z20.822 Contact with and (suspected) exposure to COVID-19 | CPT/HCPCS: 87635 ==

== ENCOUNTER 2020-11-27 13:04 | Outpatient (CLI) | payer OTHER, SELFPAY ==
--- NOTE | 2020-11-27 13:28 | CT_ITS ---
WS: [id number] CT NECK TECHNIQUE: Noncontrast CT of the neck with coronal and sagittal reformatted images. CLINICAL INFORMATION: COUGH/CHRONIC RHINITIS COMPARISON: None. DLP: 853.[address] scans at [facility] use at least one of these dose optimization techniques: automat ed exposure control; mA and/or kV adjustment per patient size (includes targeted exams where dose is matched to clinical indication); or iterative reconstruction. FINDINGS: Dental artifact degrades some images at the tongue base. Noncontrast parotid glands and submandibular glands are normal. Normal noncontrast tongue base. Normal parapharyngeal fat. Normal posterior nasop harynx. Mastoid air cells and paranasal sinuses are well aerated. Moderate small vessel changes partially visualized intracranially. No evidence of supraglottic or ofelia ttic mass. Normal subglottic airway. Nodular thyroid gland with slightly lobulated left inferior thyr oid nodule measuring 1.5 CM. No cervical lymphadenopathy. Aortic calcification. Calcified granuloma r ight upper lobe. Mild spondylitic changes cervical spine. CT/CT neck wo con [id number] IMPRESSION: 1. Noncontrast salivary glands are normal. 2. No evidence of supraglottic or glottic mass. 3. No cervical lymphadenopathy. 4. Paranasal sinuses and mastoid air cells are well aerated. 5. Nodular thyroid gland with 1.5 cm left inferior thyroid nodule. This can be followed up with ultrasound. 6. No other significant findings.
--- NOTE | 2020-11-27 13:28 | PFTS_ITS ---
Date of Study:11/27/20 Date of Dictation: MECHANICS: Forced vital capacity (FVC) is reduced. Forced expiratory volume in one second (FEV1) is normal. FEV1/FVC is normal. FLOW VOLUME LOOP: Normal. LUNG VOLUMES: Not measured DIFFUSING CAPACITY FOR CARBON MONOXIDE: Not measured. INTERPRETATION: The prebronchodilator spirometry is consistent with mild restriction. MTDD
== END 2020-11-27 13:05 | disposition home or self-care (01) ==
LOC: RT 13:05
PROVIDERS: PCP Nurse Practitioner; Visit Provider Specialist
DX: J31.0 Chronic rhinitis (principal); R05 Cough; E04.1 Nontoxic single thyroid nodule
CPT/HCPCS: 70490; 94010

== ENCOUNTER 2020-12-12 18:18 | Inpatient (IN) | payer OTHER, MEDICARE, SELFPAY ==
[2020-12-12] VITALS (7 sets, daily range): BP systolic 90–176; BP diastolic 58–103; PULSE 78–105; RESP 16–23; TEMP 37.1; O2SAT 92–96; BMI 35.4
--- NOTE | 2020-12-12 18:30 | ED_ITS ---
HPI - Chest Pain General: Chief Complaint: Chest Pain Stated Complaint: CP Time Seen by Provider: 12/12/20 18:24 History of Present Illness: MD complaint: chest pain Pertinent past history: coronary artery disease and prior NH Onset (ago): hour(s) (5 pm) Timing of current episode: still present Prior episodes: Yes Onset: during rest Pain location: substernal Pain radiation: back Severity: severe Pain scale (0-10): 10 Quality: sharp (stabbing) Relieving factors: nothing Exacerbating factors: inspiration Associated symptoms: Reports no associated symptoms, dyspnea and nausea; Deny abdominal pain, diaphoresis, fever(s), palpitations, syncope or vomiting Treatment prior to arrival: nitroglycerin (took 4 nitro but no help) Review of Systems General: Reports: 10 or more systems reviewed and unremarkable except in HPI and below Const: Denies: fever(s), chills, body aches, change in weight, fatigue, night sweats or diaphoresis Card: Reports: chest pain, dyspnea on exertion and orthopnea; Denies: palpitations, irregular heart rhythm, edema, swelling of feet/ankles, lightheadedness, syncope, pre-syncope, leg pain with exertion or acrocyanosis Resp: Reports: dyspnea and pain on inspiration; Denies: productive cough or non-productive cough GI: Reports: nausea; Denies: abdominal pain or vomiting : Denies: flank pain Musc: Reports: back pain; Denies: neck pain, extremity pain, extremity swelling or joint pain Neuro: Denies: headache(s), numbness in extremities, weakness in extremities, sensory changes or lack of coordination Giancarlo/Lymph: Denies: easy bruising PFSH ED PFSH: Medical History Abdominal aneurysm without mention of rupture CAD (coronary artery disease) CHF (congestive heart failure) CKD (chronic kidney disease) stage 4, GFR 15-29 ml/min Claudication COPD (chronic obstructive pulmonary disease) Hypertension Pulmonary nodules Vertigo Surgical History S/P knee surgery S/P shoulder surgery Social History Smoking and tobacco status: current some day smoker Physical Exam Narrative: EXAM NARRATIVE: patient appears to be in pain Const: COMMON NORMALS: patient oriented x3 and alert ORIENTATION/CONSCIOUSNESS: Yes oriented to person, Yes oriented to place and Yes oriented to time HENMT: COMMON NORMALS: normocephalic, atraumatic and moist oral mucous membranes; hearing grossly not normal bilaterally (hard of hearing) HEAD & SCALP: normal to inspection, normocephalic and atraumatic FACE & SINUS: normal facial exam and face symmetric Neck/C-Spine: COMMON NORMALS: full ROM, no lymphadenopathy, supple and no JVD Chest: COMMONS NORMALS: normal inspection of the chest and normal palpation of entire chest wall CHEST: Yes abnormal inspection of the chest, Yes Symm etrical chest wall rise, No localized rib tenderness with anteroposterior compression, No Sternal flail present and No tenderness Breast/axilla inspection: Yes no chest deformity, asymmetry, normal contours, no nodules, masses, tenderness Resp: COMMON NORMALS: normal respiratory effort and No use of accessory muscles; negative for clear to auscultation bilaterally EFFORT & INSPECTION: Yes able to speak in complete sentences, Yes symmetric chest movement, No abnormal respiratory pattern, No respiratory distress, No decreased respiratory effort, No pursed lip breathing, No labored, No grunting, No stridor, No Actively coughing, No retractions and No uses accessory muscles AUSCULTATION: not clear to auscultation bilaterally, breath sounds present, diminished lung sounds and no bronchial breath sounds Cardio: COMMON NORMALS: no JVD, regular rate and regular rhythm JUGULAR VENOUS DISTENTION: no JVD PALPATION: normal PMI RATE: regular rate RHYTHM: regular rhythm HEART SOUNDS: no murmurs GI: COMMON NORMALS: Normal to inspection, nondistended, normoactive bowel sounds present : COMMON NORMALS: Yes no CVA tenderness BLADDER/KIDNEY EXAM: Yes no CVA tenderness Back/Pelvis: COMMON NORMALS: no CVA tenderness THORACIC SPINE/UPPER BACK: Yes normal to inspection, Yes thoracic ROM normal and Yes thoracic spinal tenderness LUMBAR SPINE/LOWER BACK: Yes normal to inspection Extremity: COMMON NORMALS: full ROM NARRATIVE EXTREMITY EXAM: trace edema Neuro: COMMON NORMALS: patient oriented x3, CN's II-XII intact bilaterally, moves all extremities and no focal motor deficits SENSORIUM/ORIENTATION: Yes alert, Yes oriented to person, Yes oriented to place, Yes oriented to time and Yes other (hard of hearing) Psych: COMMON NORMALS: mental status grossly normal Skin: COMMON NORMALS: no rashes or lesions noted, no wounds, turgor normal, no jaundice and no petechiae GENERAL SKIN EXAM: no rashes or lesions noted and turgor normal Course Vital Signs: Vital signs: Vital Signs Temperature 98.7 F 12/12/20 18:23 Pulse Rate 107 H 12/13/20 02:49 Respiratory Rate 13 12/13/20 02:49 Blood Pressure 141/104 12/13/20 02:49 Pulse Oximetry 98 12/13/20 02:49 MDM - Chest Pain Lab Data: Labs: Lab Results 12/12/20 12/12/20 12/12/20 Range/Units 18:59 18:59 18:59 WBC 10.9 H (4.0-10.0) 10^3/ uL RBC 4.08 L (4.1-5.3) 10^6/u L Hgb 13.1 (11.7-16.6) g/dL Hct 41.2 L (42.0-52.0) % MCV 101.0 H (80-94) fL MCH 32.1 (28.0-34.0) pg MCHC 31.8 (30.0-36.0) g/dL RDW 13.4 (12.1-15.1) % Plt Count 177 (130-400) 10^3/c mm MPV 9.8 (7.4-10.4) fL Neut % (Auto) 59.7 % Lymph % (Auto) 17.4 % Winkler % (Auto) 7.5 % Eos % (Auto) 14.3 % Baso % (Auto) 0.6 % Neut # (Auto) 6.50 (1.8-7.7) 10^3/u L Lymph # (Auto) 1.9 (0.8-4.8) 10^3/u L Winkler # (Auto) 0.8 (0.2-0.9) 10^3/u L Eos # (Auto) 1.6 H (0.0-0.8) 10^3/u L Baso # (Auto) 0.1 (0.0-0.1) 10^3/u L Nucleated RBC % (a uto) 0 % Nucleated RBCs # 0.0 /100WBC PT 14.50 (12.1-14.9) SECO NDS INR 1.10 (0.8-1.2) APTT 26.9 (23.9-36.7) SECO NDS D-Dimer 11.09 H (0-0.59) ug/mIFE U Sodium 144 (136-145) mmol/L Potassium 4.1 (3.5-5.1) mmol/L Chloride 107 (98-107) mmol/L Carbon Dioxide 24 (22-29) mmol/L Anion Gap 17.1 (5-19) BUN 34 H (8-23) mg/dL Creatinine 2.8 H (0.7-1.2) mg/dL GFR Calculation Not Reportable Glucose 117 H (65-115) mg/dL Calculated Osmolal ity 307 H (285-295) mOsm/k g Calcium 8.5 (8.5-10.5) mg/dL Total Bilirubin 0.4 (0.15-1.2) mg/dL AST 14 (0-40) U/L ALT 12 (0-41) U/L Alkaline Phosphata se 108 (40-130) IU/L Troponin T Baselin e (0-15) ng/L Troponin T 120 Min morris (0-15) ng/L Delta Troponin T (0-10) ABS# Troponin T Hi Sens 6Hr (0-15) ng/L Troponin T Hi Sens 6Hr Delta (0-12) ng/L NT-Pro-B Natriuret Pep 1185 H (0-125) pg/mL Total Protein 7.4 (6.6-8.7) g/dL Albumin 4.0 (3.5-5.2) g/dL Globulin 3.4 (1.3-4.6) g/dL 12/12/20 12/12/20 12/13/20 Range/Units 18:59 21:13 00:26 WBC (4.0-10.0) 10^3/ uL RBC (4.1-5.3) 10^6/u L Hgb (11.7-16.6) g/dL Hct (42.0-52.0) % MCV (80-94) fL MCH (28.0-34.0) pg MCHC (30.0-36.0) g/dL RDW (12.1-15.1) % Plt Count (130-400) 10^3/c mm MPV (7.4-10.4) fL Neut % (Auto) % Lymph % (Auto) % Winkler % (Auto) % Eos % (Auto) % Baso % (Auto) % Neut # (Auto) (1.8-7.7) 10^3/u L Lymph # (Auto) (0.8-4.8) 10^3/u L Winkler # (Auto) (0.2-0.9) 10^3/u L Eos # (Auto) (0.0-0.8) 10^3/u L Baso # (Auto) (0.0-0.1) 10^3/u L Nucleated RBC % (a uto) % Nucleated RBCs # /100WBC PT (12.1-14.9) SECO NDS INR (0.8-1.2) APTT (23.9-36.7) SECO NDS D-Dimer (0-0.59) ug/mIFE U Sodium (136-145) mmol/L Potassium (3.5-5.1) mmol/L Chloride (98-107) mmol/L Carbon Dioxide (22-29) mmol/L Anion Gap (5-19) BUN (8-23) mg/dL Creatinine (0.7-1.2) mg/dL GFR Calculation Glucose (65-115) mg/dL Calculated Osmolal ity (285-295) mOsm/k g Calcium (8.5-10.5) mg/dL Total Bilirubin (0.15-1.2) mg/dL AST (0-40) U/L ALT (0-41) U/L Alkaline Phosphata se (40-130) IU/L Troponin T Baselin e 20 H (0-15) ng/L Troponin T 120 Min morris 21.47 H (0-15) ng/L Delta Troponin T 1.47 (0-10) ABS# Troponin T Hi Sens 6Hr 28.24 H (0-15) ng/L Troponin T Hi Sens 6Hr Delta 8.24 (0-12) ng/L NT-Pro-B Natriuret Pep (0-125) pg/mL Total Protein (6.6-8.7) g/dL Albumin (3.5-5.2) g/dL Globulin (1.3-4.6) g/dL Imaging Data^: Other Imaging: Radiologist's impression: pulmonary embolus left lung Discharge Plan Discharge Patient Disposition: Admitted As Inpatient Admit Provider: Jayda Jarquin Clinical Impression: Pulmonary embolism Qualifiers: Pulmonary embolism type: unspecified Chronicity: acute Acute cor pulmonale presence: unspecified Qualified Code(s): I26.99 - Other pulmonary embolism without acute cor pulmonale Chest pain Qualifiers: Chest pain type: other chest pain Qualified Code(s): R07.89 - Other chest pain Condition: Stable Discharge Diet: As Directed Coding Level of Care Code ED Ship'S Electronic Warfare Officer for Chg Fwd Exam Comprehensive
--- NOTE | 2020-12-12 18:38 | ECG_ITS ---
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 Measurements Intervals [place] Rate: 91 P: 25 GA: 153 QRS: 12 QRSD: 90 T: 37 QT: 378 QTc: 465 Interpretive Statements SINUS RHYTHM WITH SINUS ARRHYTHMIA POSSIBLE LEFT ATRIAL ENLARGEMENT [-0.1mV P WAVE IN V1/V2] POSSIBLE LEFT VENTRICULAR HYPERTROPHY [VOLTAGE CRITERIA PLUS LAE OR QRS WIDENING] NONSPECIFIC ST & T-WAVE ABNORMALITY INTERPRETATION BASED ON A DEFAULT AGE OF 40 YEARS Compared to ECG 07/20/2020 01:19:02 No significant changes Electronically Signed On 12-13-2020 20:35:46 CDT by Jed Westbrook M.D. [id number]
--- NOTE | 2020-12-12 18:38 | XR_ITS ---
WS: [id number] Exam: XR chest 1V portable [id number] Date/Time of Exam: 12/12/2020 6:45 PM Reason For Exam: chest pain Comparison 11/09/2020. There is interstitial infiltrate in the lower right lung zone suspicious for pneumonia. Mild cardiac enlargement. The left lung is clear. No pleural effusions or pneumothorax. The mediastinum and osseou s thorax are unremarkable. XR/XR chest 1V portable [id number] IMPRESSION: 1. Interstitial infiltrate in the right lower lung zone suspicious for pneumoni a. 2. Mild cardiac enlargement.
[2020-12-12] MEDS: ondansetron 2 mg/ML SDV 2 mL 4 MG IVP (19:00)
[2020-12-12] MEDS: aspirin 81 mg Chew Tablet 324 MG PO (19:01)
[2020-12-12] MEDS: morphine 4 mg/mL SDV 1 mL IVP ×3 (19:01→23:25)
[2020-12-12 19:11] LABS: Basophils # 0.1 10^3/uL (0.0-0.1); Basophils % 0.6 %; Eosinophils # 1.6 10^3/uL (0.0-0.8); Eosinophils % 14.3 %; Hematocrit 41.2 % (42.0-52.0); Hemoglobin 13.1 g/dL (11.7-16.6); Lymphocytes # 1.9 10^3/uL (0.8-4.8); Lymphocytes % 17.4 %; Mean Corpuscular HGB Conc 31.8 g/dL (30.0-36.0); Mean Corpuscular Hemoglobin 32.1 pg (28.0-34.0); Mean Platelet Volume 9.8 fL (7.4-10.4); Monocytes # 0.8 10^3/uL (0.2-0.9); Monocytes % 7.5 %; Neutrophils % 59.7 %; Nucleated Red Blood Cells % 0 %; Platelet Count 177 10^3/cmm (130-400); Red Blood Count 4.08 10^6/uL (4.1-5.3); Red Cell Distribution Width 13.4 % (12.1-15.1); White Blood Count 10.9 10^3/uL (4.0-10.0)
[2020-12-12 19:37] LABS: Partial Thromboplastin Time 26.9 SECONDS (23.9-36.7)
[2020-12-12 19:43] LABS: Troponin(5th) Baseline 20 ng/L (0-15)
[2020-12-12 19:46] LABS: D Dimer 11.09 ug/mIFEU (0-0.59)
[2020-12-12 19:51] LABS: Alanine Aminotransferase 12 U/L (0-41); Alkaline Phosphatase 108 IU/L (40-130); Anion Gap 17.1 (5-19); Aspartate Amino Transferase 14 U/L (0-40); Blood Urea Nitrogen 34 mg/dL (8-23); Calcium 8.5 mg/dL (8.5-10.5); Carbon Dioxide 24 mmol/L (22-29); Chloride 107 mmol/L (98-107); Globulin 3.4 g/dL (1.3-4.6); Glucose 117 mg/dL (65-115); NT Pro B Type Natriuretic Pept 1185 pg/mL (0-125); Osmolality Calculated 307 mOsm/kg (285-295); Potassium 4.1 mmol/L (3.5-5.1); Sodium 144 mmol/L (136-145); Total Bilirubin 0.4 mg/dL (0.15-1.2); Total Protein 7.4 g/dL (6.6-8.7)
--- NOTE | 2020-12-12 19:52 | PC.NURSE ---
patient placed on 2L oxygen via nasal cannula
[2020-12-12] MEDS: FUROsemide 10 mg/mL SDV 10mL 60 MG IVP (20:28)
--- NOTE | 2020-12-12 20:38 | ECG_ITS ---
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 Measurements Intervals [place] Rate: 99 P: 265 CO: 148 QRS: -81 QRSD: 93 T: 114 QT: 272 QTc: 349 Interpretive Statements Possible ECTOPIC ATRIAL RHYTHM LEFT VENTRICULAR HYPERTROPHY AND ST-T CHANGE [VOLTAGE CRITERIA PLUS ST/T ABNORMALITY] INFERIOR MYOCARDIAL INFARCTION , OF INDETERMINATE AGE [40+ ms Q WAVE AND/OR ST/T ABNORMALITY IN II/aVF] Compared to ECG 12/12/2020 18:18:23 Ectopic atrial rhythm now present ST (T wave) deviation now present Myocardial infarct finding now present Sinus rhythm no longer present Sinus arrhythmia no longer present T-wave abnormality no longer present Electronically Signed On 12-13-2020 20:41:09 CDT by Jed Westbrook M.D. [email or web address]
[2020-12-12 21:34] LABS: Troponin 5 2HR 21.47 ng/L (0-15); Troponin 5 2HR Delta 1.47 ABS# (0-10)
--- NOTE | 2020-12-12 22:01 | NMR_ITS ---
PROCEDURE INFORMATION: Exam: WI Lung Ventilation and Perfusion Imaging Exam date and time: 12/12/2020 11:11 PM Age: 75 years old Clinical indication: Chest pain; Precoridal; Additional info: R/O pe TECHNIQUE: Imaging protocol: Nuclear pulmonary ventilation with aerosol or gas was performed followed by perfusion. Views: Ventilation acquired with multiple projections. Perfusion acquired with multiple projections. Radiopharmaceutical: 5.1 mCi Tc-99m MAA (Macroaggregated Albumin), IV. 32.4 mCi Tc-99m DTPA (DTPA Aerosol), Inhalation. COMPARISON: WI pul vent and perfus* [id number] 02/01/2020 8:00 AM FINDINGS: Ventilation: Severely decreased ventilation and perfusion to the left lung. Perfusion: Normal perfusion of the right lung. Normal right lung ventilation. WI/WI pul vent and perfus* [id number] IMPRESSION: Pulmonary embolism positive in the left lung.
[2020-12-12] MEDS: heparin 5,000 unit/mL INJ 1 mL 4000 UNIT IVP (22:56)
[2020-12-12] MEDS: heparin drip 25,000 UNIT/500 ML PREMIX 26.1 UNIT IV (22:58)
--- NOTE | 2020-12-12 23:31 | PC.NURSE ---
Pt to CT
[2020-12-13] VITALS (130 sets, daily range): BP systolic 105–167; BP diastolic 76–118; PULSE 43–115; RESP 12–25; TEMP 36.7–37.1; O2SAT 87–98
--- NOTE | 2020-12-13 00:38 | ECG_ITS ---
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 Measurements Intervals [place] Rate: 96 P: 47 MD: 157 QRS: 18 QRSD: 83 T: 26 QT: 355 QTc: 449 Interpretive Statements SINUS RHYTHM NONSPECIFIC T-WAVE ABNORMALITY Compared to ECG 12/12/2020 21:08:33 T-wave abnormality now present Ectopic atrial rhythm no longer present Left ventricular hypertrophy no longer present ST (T wave) deviation no longer present Myocardial infarct finding no longer present Electronically Signed On 12-13-2020 20:41:53 CDT by Jed Westbrook M.D. [id number]
[2020-12-13 01:01] LABS: Troponin 5 6HR 28.24 ng/L (0-15); Troponin 5 6HR Delta 8.24 ng/L (0-12)
[2020-12-13] MEDS: ondansetron 2 mg/ML SDV 2 mL 4 MG IVP (01:58)
[2020-12-13] MEDS: HYDROmorphone 1 mg/mL INJ 1 mL 0.5 MG IVP ×2 (02:00→09:14)
--- NOTE | 2020-12-13 03:25 | USCV_ITS ---
Jaden Cervantes Age: 75 Gender: M : 1945 Exam Date: 12/13/2020 06:11 Ordering Phys: Jayda Jarquin MD Technologist: Cas Mckoy [place] [facility] [place]: PE ASSESS FOR RT STRAIN BP: 105 / 76 HR: 106 Rhythm: Sinus Technical Quality: Technically difficult study MEASUREMENTS (Male / Female) Normal Values 2D ECHO LV Diastolic Diameter PLAX 4.5 cm 4.2 - 5.9 / 3.9 - 5.3 cm LV Systolic Diameter PLAX 3.1 cm IVS Diastolic Thickness 1.4 cm 0.6 - 1.0 / 0.6 - 0.9 cm IVS Systolic Thickness 1.4 cm LVPW Diastolic Thickness 1.3 cm 0.6 - 1.0 / 0.6 - 0.9 cm LVPW Systolic Thickness 1.4 cm LVOT Diameter 2.0 cm LV Ejection Fraction 2D Teich 58.0 % LA Diameter 3.8 cm LA Width 4.0 cm LA Height 5.2 cm RA Width 4.0 cm RA Height 5.7 cm M-MODE LV Diastolic Diameter MM 4.8 cm 4.2 - 5.9 / 3.9 - 5.3 cm LV Systolic Diameter MM 3.2 cm LV Ejection Fraction MM Teich 63.3 % IVS Diastolic Thickness MM 1.4 cm 0.6 - 1.0 / 0.6 - 0.9 cm IVS Systolic Thickness MM 1.6 cm LVPW Diastolic Thickness MM 1.4 cm 0.6 - 1.0 / 0.6 - 0.9 cm LVPW Systolic Thickness MM 1.8 cm RV Diastolic Diameter MM 2.1 cm Aortic Annulus Diameter 2.8 cm LA Ao Ratio MM 1.6 MV E Point Septal Separation 0.8 cm DOPPLER AV Peak Velocity 139.7 cm/s LVOT Peak Velocity 92.0 cm/s AV Area Cont Eq vti 2.7 cm squared AV Area Cont Eq pk 2.2 cm squared MV Area PHT 5.0 cm squared Mitral E to A Ratio 0.6 MV E' Velocity 23.0 cm/s Mitral E to MV E' Ratio 7.2 Mitral E to LV E' Lateral Ratio 7.9 Mitral E to LV E' Septal Ratio 6.6 TR Peak Velocity 129.0 cm/s TR Peak Gradient 6.7 mmHg TV Peak E Velocity 73.0 cm/s Right Atrial Pressure 8.0 mmHg Pulmonary Artery Systolic Pressu 14.7 mmHg FINDINGS Left Ventricle Normal left ventricular size and systolic function. Left ventricular ejection fraction is estimated at 60-65 %. No diagnostic regional wall motion abnormality. Grade I diastolic dysfunction (abnormal relaxation filling pattern), normal to mildly elevated filling pressures. Right Ventricle Right ventricle not well visualized. Probably normal right ventricle size and systolic function. Right Atrium Right atrium not well visualized. Left Atrium Left atrium not well visualized. Mitral Valve Thickened mitral valve. Aortic Valve Aortic valve not well visualized. No aortic valve stenosis. Tricuspid Valve Tricuspid valve not well visualized. Pulmonic Valve Pulmonic valve not well visualized. Pericardium No pericardial effusion. Aorta Aorta not well visualized. CONCLUSIONS 1. This is a technically difficult study. 2. Normal left ventricular size and systolic function. Left ventricular ejection fraction is estimated at 60-65 %. No diagnostic regional wall motion abnormality. 3. Probably normal right ventricle size and systolic function. 4. No gross valvular abnormality based on this technically difficult study. 5. No significant change when compared to previous echocardiogram report dated 07/20/2020. Mckenzie Degroot MD (Electronically Signed) Final Date: 13 December 2020 16:51 S
--- NOTE | 2020-12-13 03:25 | USCV_ITS ---
Jaden Cervantes Age: 75 Gender: M : 1945 Exam Date: 12/13/2020 06:26 Ordering Phys: Jayda Jarquin MD Technologist: Exam Location: [facility] – [place] Indication: ? pe HISTORY: CHEST PAIN PROCEDURES: The venous duplex Doppler examination of both lower extremities was performed in the standard fashion. FINDINGS: Normal 2-D Doppler and augmentation and compressibility throughout the lower extremity venous structures. Additional imaging through the proximal calf veins also reveals no thrombus. Limited evaluation of the greater saphenous vein is patent with no thrombus. CONCLUSIONS No DVT bilateral lower extremities. Dr. Digna Cooney DO (Electronically Signed) Final Date: 13 December 2020 08:49 S
--- NOTE | 2020-12-13 03:27 | PM.HP ---
Providers/Chief Complaint Admitting Physician: Jayda Jarquin Primary Care Provider: ANEESH Reynolds Chief Complaint: CP History of Present Illness 74-year-old with a past medical history significant for chronic diastolic heart failure, hypertension, chronic kidney disease stage 3, diabetes mellitus and COPD who presented to the hospital with acute onset of chest pain. Patient stated this started around 5:00 p.m.. Pleuritic in nature. Associated with shortness of breath. States he does have COPD and has multiple inhalers at home however he does not use disease. Previously was prescribed nocturnal oxygen however was non compliant. Denies any recent fever or chills. Noted cough productive of clear sputum. While in emergency room he did have an episode of nausea and vomiting however none prior to arrival. Laboratory workup showed a WBC of 10.9, hemoglobin of 13.1, hematocrit 41.2 and a platelet count of 177. Sodium 144, potassium 4.1, chloride 107, bicarb 24, BUN 34 and a creatinine of 2.8. ProBNP of 1185. D-dimer was elevated at 11.09. Patient was taken for a V/Q scan which showed severely decreased ventilation and perfusion to the left lung suggestive of pulmonary embolism. Patient was then started on IV heparin drip. Of note patient did state he was admitted for GI bleed over a year ago which had spontaneously resolved without intervention or no transfusion was required. No recent episodes of dark stools. Denied being on any anticoagulation recently. At the time of my eval patient was in mild respiratory distress requiring 4L of o2 via NC. Additionally in ER patient was given aspirin 324 mg PO x1, Lasix 60 mg IV x1, and multiple doses of IV pain medication Review of Systems General: Reports: 10 or more systems reviewed and unremarkable except in HPI and below Medications/Allergies Home Medications Medication Instructions Recorded Confirmed Last Taken Type carvedilol 12.5 mg tablet 12.5 mg PO Q12H #180 tab 03/07/20 12/12/20 12/12/20 Rx nitroglycerin 0.4 mg sublingual 0.4 mg SUBLINGUAL Q5M PRN #25 tab 03/07/20 12/12/20 12/12/20 Rx tablet atorvastatin 40 mg tablet 80 mg PO DAILY@0700 tab 07/26/20 12/12/20 12/12/20 History amlodipine 5 mg PO BID@0700,1900 12/12/20 12/12/20 12/12/20 History aspirin 162 mg PO DAILY@0700 12/12/20 12/12/20 12/12/20 History azelastine See Rx Instructions .ROUTE .COMPLEX 12/12/20 12/12/20 Unknown History isosorbide mononitrate 30 mg PO BID@0700,1900 12/12/20 12/12/20 12/12/20 History levocetirizine 5 mg PO DAILY@0700 12/12/20 12/12/20 Unknown History omeprazole 20 mg PO BID@0700,1900 12/12/20 12/12/20 Unknown History Allergies Allergy/AdvReac Type Severity Reaction Status Date / Time serazone Allergy Mild ALGY-Rash Uncoded 07/26/20 13:33 PFSH Acute PFSH: Medical History Abdominal aneurysm without mention of rupture CAD (coronary artery disease) CHF (congestive heart failure) CKD (chronic kidney disease) stage 4, GFR 15-29 ml/min Claudication COPD (chronic obstructive pulmonary disease) Hypertension Pulmonary nodules Vertigo Surgical History S/P knee surgery S/P shoulder surgery Social History Smoking and tobacco status: current some day smoker Vitals/I&O/Wt Last Vital Signs Temp 98.7 F 12/12/20 18:23 Pulse 107 H 12/13/20 02:49 Resp 13 12/13/20 02:49 BP 141/104 12/13/20 02:49 Pulse Ox 98 12/13/20 02:49 12/12/20 12/12/20 12/13/20 14:59 22:59 06:59 Intake Total 14.355 / 14.355 Balance 14.355 / 14.355 Weight last 48 hrs Weight 108.862 kg Physical Exam Narrative: EXAM NARRATIVE: General : Alert, awake oriented x 3, mild distress due to dyspnea HEENT: EOMI, grossly unremarkable Chest : Mild increase work of breathing, rhonchi CVS : Sinus tachycardia ABD: Soft,NT,ND Ext: No edema Data : 12/12/20 18:59 12/12/20 18:59 A&P Assessment and plan (1) Pulmonary embolism: Status: Acute Qualifiers: Acute cor pulmonale presence: unspecified Chronicity: acute Pulmonary embolism type: unspecified Qualified Code(s): I26.99 - Other pulmonary embolism without acute cor pulmonale (2) CAD (coronary artery disease): Status: Chronic Qualifiers: Coronary Disease-Associated Artery/Lesion type: [place] artery [place] vs. transplanted heart: [place] heart Associated angina: angina presence unspecified Qualified Code(s): I25.10 - Atherosclerotic heart disease of [place] coronary artery without angina pectoris (3) CHF (congestive heart failure): Status: Chronic Qualifiers: Heart failure type: diastolic Heart failure chronicity: chronic Qualified Code(s): I50.32 - Chronic diastolic (congestive) heart failure (4) COPD (chronic obstructive pulmonary disease): Status: Chronic Qualifiers: COPD type: emphysema Emphysema type: unspecified Qualified Code(s): J43.9 - Emphysema, unspecified (5) Hypertension: Status: Chronic Qualifiers: Hypertension type: essential hypertension Qualified Code(s): I10 - Essential (primary) hypertension Acute respiratory distress with hypoxia due to pulmonary embolism - Also leading to mild cold exacerbation - D-dimer of 11.09 - VQ scan suggestive of L.lung PE - Continue supplemental o2 - wean as tolerated - Continue heparin gtt for now per protocol - Obtain ABG - Will obtain ECHO - assess for R.heart strain - B/L LE venous Doppler - assess for DVT - Monitor on telemetry - Duoneb tx q6hr - Verify home inhaler regimen - Consider pulmonary medicine consult Chest pain - Likely due to above - s/p ASA 325 mg po x 1 in ER - ECHO ordered - Troponin trend not consistent with acs - Moniotr on telemetry Chronic stage 3 kidney disease - Creatinine 2.8 - as around baseline - Monitor u/o - Renal dosing of meds Additional medical Problems - Hyperension - Dyslipidemia - Coronary artery disease - Ch. Diastolic HF - Tobacco abuse - GERD Attestations Medical Necessity Statement*: Will require over 2 midnight stay in hospital for eval and treatment of acute PE Time Spent in Patient Care: Greater than 35 minutes (>than 50% of time spent in counselling and/or direct pt care on unit). Coding Level of Care Code Acute Director Business Integration for David Shen Diagnoses Pulmonary embolism I26.99 Acute cor pulmonale presence: unspecified Chronicity: acute Pulmonary embolism type: unspecified CAD (coronary artery disease) I25.10 Coronary Disease-Associated Artery/Lesion type: [place] artery [place] vs. transplanted heart: [place] heart Associated angina: angina presence unspecified CHF (congestive heart failure) I50.32 Heart failure type: diastolic Heart failure chronicity: chronic COPD (chronic obstructive pulmonary disease) J43.9 COPD type: emphysema Emphysema type: unspecified Hypertension I10 Hypertension type: essential hypertension
[2020-12-13] MEDS: sodium chloride 0.9% 1,000 ML 50 ML IV (04:30)
[2020-12-13 04:57] LABS: ABG PCO2 47.6 mmHg (35-45); Arterial Blood Gas Hematocrit 36.7 % (42-52); Base Excess ABG -3.5 mmol/L (-2.0-2.0); Blood Gas Sample Type Arterial; HCO3 ABG 23.2 mmol/L (22-26); PO2 ABG 89.4 mmHg (80.0-100.0)
[2020-12-13 04:58] LABS: Blood Gas Operator Identificat HARKR; Blood Gas Sample Site Radial, right; Oxygen Device NC
[2020-12-13 05:29] LABS: Partial Thromboplastin Time 58.7 SECONDS (23.9-36.7)
--- NOTE | 2020-12-13 06:22 | PC.NURSE ---
NURSE NOTE: ADMISSION: PT ARRIVED TO UNIT AT 0330 TODAY. ALERT AND ORIENTED X4; MOVES ALL EXTREMITIES AND FOLLOWS ALL COMMANDS. VERY DROWSY UPON ARRIVAL. PT C/O NAUSEA UPON ARRIVAL BUT HAD JUST RECEIVED DOSE OF ZOFRAN IN ED. NO FURTHER EMESIS NOTED. PT DENIES FURTHER C/O PAIN AND AFTER ADMISSION ASSESSMENT COMPLETE, PT RESTED QUIETLY WITH EYES CLOSED, RESP EVEN AND NON LABORED; NO DISTRESS NOTED. ALL VS AND ASSESSMENTS CHARTED. HEPARIN GTT INFUSING ORDERED.
[2020-12-13] MEDS: perflutren protein-a microsphr 0.22 mg/mL SDV 3 mL IV (07:44)
[2020-12-13 09:13] LABS: Alveolar-Arterial Oxygen Gradi 12.3 mmHg (5-10); Arterial Blood Gas Hematocrit 36.6 % (42-52); Base Excess ABG -3.2 mmol/L (-2.0-2.0); Blood Gas Operator Identificat AMH; Blood Gas Sample Site Brachial, left; Blood Gas Sample Type Arterial; HCO3 ABG 23.3 mmol/L (22-26); HGB O2 Sat 96.7 % (95-100); Ionized Calcium Level - ABG 1.2 mmol/L (1.1-1.4); Methemoglobin 0.4 % (0.4-1.5); Oxygen Device NC; Oxygen Saturation ABG 98.1
[2020-12-13] MEDS: famotidine 20 mg Tablet PO (09:14)
[2020-12-13] MEDS: carvedilol 12.5 mg Tablet PO (09:14)
[2020-12-13] MEDS: ipratropium-albuterol 3 mL Neb INHALATION ×3 (09:20→20:02)
[2020-12-13 09:25] LABS: Lactate (Lactic Acid level) 1.8 mmol/L (0.5-2.2)
--- NOTE | 2020-12-13 09:47 | PC.NURSE ---
TORRES CATHETER INSERTED, APPROXIMATELY 50 ML OF URINE RETURNED. NO OTHER URINE AMOUNT NOTED. BLADDER SCANNED, NO RESIDUAL AMOUNT NOTED. PATIENT ALSO NOTED TO BECOME NAUSEAS AFTER ADMINISTRATION OF DILAUDID. NOTIFIED ALL TO DR. GATES. CHANGED PAIN MEDICATION TO MORPHINE 1 MG Q4H PRN.
--- NOTE | 2020-12-13 10:09 | PC.NURSE ---
pH values reported to Dr. Thibodeaux. Physician made decision to move patient to ICU.
--- NOTE | 2020-12-13 10:46 | PC.NURSE ---
REPORT GIVEN TO AURELIA DÍAZ IN ICU. PATIENT TRANSFERRED TO ICU BED 7. ATTEMPTED TO NOTIFY PATIENT'S , JUAN, HOWEVER, PER HER SON SHE WAS IN TRANSIT AND DOES NOT HAVE A CELL PHONE. ASKED THE DESIGN CELL ENGINEER TO PLEASE BRING JUAN TO CSU WHEN SHE ARRIVES.
[2020-12-13 11:24] LABS: Hematocrit 36.3 % (42.0-52.0); Hemoglobin 11.5 g/dL (11.7-16.6)
[2020-12-13 11:50] LABS: Partial Thromboplastin Time 102.9 SECONDS (23.9-36.7)
--- NOTE | 2020-12-13 12:26 | US_ITS ---
WS: [id number] RENAL ULTRASOUND HISTORY: heydi COMPARISON: None available. TECHNIQUE: 2-D and color Doppler imaging of the kidney submitted. Right kidney: 8.4 cm x 4.5 cm x 4.8 cm. Mild atrophy with moderate chronic microvascular ischemic disease. Mild diffuse cortical thinning. No hydronephrosis or mass. Left kidney: 8.5 cm x 4.3 cm x 5.2 cm. Mild atrophy with increased echogenicity and thinning of the cortex. No hydronephrosis or mass. Aorta: Mild atherosclerosis. Poorly visualized. Urinary Bladder: Nondistended. US/US renal BI* [id number] IMPRESSION: 1. Mild renal atrophy with cortical thinning. 2. Moderate chronic renal medical disease.
--- NOTE | 2020-12-13 13:04 | P.PN_ITS ---
Subjective Subjective: Interval history: This morning patient was examined in the cardiac stepdown unit, he is on 4 L, mild respiratory distress, complaining of chest pain with every breath, had decreased air movement in all lung wynn, has a history of COPD, has history of CHF, denies lightheadedness, denies dizziness, is alert oriented x3, he has had no urine output, he tells me that he is here in the hospital because he felt short of breath and had chest pain, no fevers or chills at home Patient was subsequently moved to the ICU due to worsening respiratory status and decreased urine output Vitals/I&O/Wt Last Vital Signs Temp 98.4 F 12/13/20 10:11 Pulse 106 H 12/13/20 10:11 Resp 12 12/13/20 10:11 BP 135/87 12/13/20 10:11 Pulse Ox 95 12/13/20 10:11 12/12/20 12/13/20 12/13/20 22:59 06:59 14:59 Intake Total 253.980 / 253.980 294.6 / 294.6 Balance 253.980 / 253.980 294.6 / 294.6 Weight last 48 hrs Weight 113.03 kg Weight 108.862 kg Physical Exam Const: COMMON NORMALS: no acute distress and patient oriented x3 HENMT: COMMON NORMALS: normocephalic HEAD & SCALP: normocephalic Neck/C-Spine: COMMON NORMALS: no JVD Chest: OTHER: Pain with palpation of left chest Resp: COMMON NORMALS: normal respiratory effort, No retractions and No use of accessory muscles EFFORT & INSPECTION: Yes tachypneic and Yes uses accessory muscles AUSCULTATION: diminished lung sounds diffuse Cardio: COMMON NORMALS: no JVD, regular rhythm, S1 normal heart sound present and S2 normal heart sound present RATE: tachycardic RHYTHM: regular rhythm HEART SOUNDS: S1 normal heart sound present and S2 normal heart sound present GI: COMMON NORMALS: Normal to inspection, nondistended, normoactive bowel sounds present, Soft to palpation, non-tender, No hepatosplenomegaly present, no masses and no bruits PALPATION: Yes Soft to palpation and Yes No hepatosplenomegaly present Extremity: COMMON NORMALS: capillary refill normal, no clubbing, cyanosis or edema, no calf tenderness and no pedal edema Neuro: COMMON NORMALS: patient oriented x3 Psych: COMMON NORMALS: mental status grossly normal Urinary Catheter Management^: Lamas: Cath Placed During This Visit: yes Urinary Catheter Date of Insertion: 12/13/20 Urinary Catheter Time of Insertion: 08:30 Data : 12/13/20 11:10 12/12/20 18:59 A&P Assessment and plan (1) Acute respiratory failure with hypoxia: Status: Acute (2) Metabolic acidosis: Status: Acute (3) Acute renal failure: Status: Acute (4) Pulmonary embolism: Status: Acute Qualifiers: Acute cor pulmonale presence: unspecified Chronicity: acute Pulmonary embolism type: unspecified Qualified Code(s): I26.99 - Other pulmonary embolism without acute cor pulmonale (5) CAD (coronary artery disease): Status: Chronic Qualifiers: Coronary Disease-Associated Artery/Lesion type: [place] artery [place] vs. transplanted heart: [place] heart Associated angina: angina presence unspecified Qualified Code(s): I25.10 - Atherosclerotic heart disease of [place] coronary artery without angina pectoris (6) CHF (congestive heart failure): Status: Chronic Qualifiers: Heart failure type: diastolic Heart failure chronicity: chronic Qualified Code(s): I50.32 - Chronic diastolic (congestive) heart failure (7) COPD (chronic obstructive pulmonary disease): Status: Chronic Qualifiers: COPD type: emphysema Emphysema type: unspecified Qualified Code(s): J43.9 - Emphysema, unspecified (8) Hypertension: Status: Chronic Qualifiers: Hypertension type: essential hypertension Qualified Code(s): I10 - Essential (primary) hypertension Acute respiratory distress with hypoxia due to pulmonary embolism, copd exacerbation and possible pneumonia - D-dimer of 11.09 - VQ scan suggestive of extensive left lung pulmonary emboli -Given patient's severe shortness of breath, pleuritic nature of chest pain, and VQ scan scan findings I suspect he has a large pulmonary emboli likely central on the left, with likely pulmonary infarct Plan: -Requires ICU admission -Continue oxygen, wean as tolerated, BiPAP as needed - Continue heparin gtt for now per protocol - Will obtain ECHO - assess for R.heart strain - B/L LE venous Doppler -negative for DVT - Monitor on telemetry - Duoneb tx q6hr -DuoNeb treatments every 6 hours -Solu-Medrol 40 every 8 hours -We will give a trial of Lasix 40 mg Metabolic acidosis, pH of 7.31, PCO2 is 45, lactic acid within normal limits, at anion gap 17.1, suspecting renal failure as an etiology Acute renal failure on chronic kidney disease stage III -Baseline creatinine is 2.8 -The only insult to the kidney that I can see is 60 mg of Lasix he received in the emergency room -Since then he has had 50 cc of urine output, Lamas was checked, bladder scan with no urine in the bladder -Continue to bladder scan every 4 hours -We will perform renal ultrasound -We will do a trial of 40 mg of Lasix -Avoid nephrotoxic agents for now Chest pain - Likely due to above - s/p ASA 325 mg po x 1 in ER, continue aspirin statin - ECHO ordered - Troponin 6-hour 8.24, delta of 28.24 -Continue telemetry monitoring -EKG no acute ST-T wave changes - Hyperension -Continue Coreg - Dyslipidemia - Coronary artery disease - Ch. Diastolic HF -Avoid fluid therapy -Lasix as needed for now - Tobacco abuse - GERD Full code Heparin drip for DVT prophylaxis Attestations Medical Necessity Statement*: Patient requires hospitalization, for left lung pulmonary emboli, possible pneumonia, COPD exacerbation, acute renal failure Time Spent in Patient Care: Greater than 35 minutes (>than 50% of time spent in counselling and/or direct pt care on unit) . Coding Level of Care Code Acute Paleontology Teacher for David Shen Diagnoses Acute respiratory failure with hypoxia J96.01 Metabolic acidosis E87.2 Acute renal failure N17.9 Pulmonary embolism I26.99 Acute cor pulmonale presence: unspecified Chronicity: acute Pulmonary embolism type: unspecified CAD (coronary artery disease) I25.10 Coronary Disease-Associated Artery/Lesion type: [place] artery [place] vs. transplanted heart: lumbee heart Associated angina: angina presence unspecified CHF (congestive heart failure) I50.32 Heart failure type: diastolic Heart failure chronicity: chronic COPD (chronic obstructive pulmonary disease) J43.9 COPD type: emphysema Emphysema type: unspecified Hypertension I10 Hypertension type: essential hypertension
[2020-12-13] MEDS: vancomycin 1,500 MG/300 ML PIGGYBACK 200 MG IV (13:56)
[2020-12-13] MEDS: FUROsemide 10 mg/mL SDV 4mL 40 MG IVP (13:56)
[2020-12-13] MEDS: piperacillin-tazobactam 3.375 GM in sodium chloride 0.9% (plus) 50 ML IV (15:13)
[2020-12-13] MEDS: pantoprazole DR 40 mg Tablet PO (18:05)
--- NOTE | 2020-12-13 18:14 | PC.NURSE ---
Lowry removed and new lowry placed. Still no urine output.
[2020-12-13 18:44] LABS: Hematocrit 32.8 % (42.0-52.0); Hemoglobin 10.2 g/dL (11.7-16.6)
[2020-12-13 19:08] LABS: Partial Thromboplastin Time 88.4 SECONDS (23.9-36.7)
[2020-12-13] MEDS: morphine 4 mg/mL SDV 1 mL 1 MG IVP (19:51)
--- NOTE | 2020-12-13 21:50 | W.ED.CHESTPA ---
HPI - Chest Pain General: Chief Complaint: Chest Pain Stated Complaint: CP Time Seen by Provider: 12/12/20 18:24 History of Present Illness: Pain location: substernal Quality: sharp (stabbing) Relieving factors: nothing Exacerbating factors: inspiration PFSH ED PFSH: Medical History Abdominal aneurysm without mention of rupture CAD (coronary artery disease) CHF (congestive heart failure) CKD (chronic kidney disease) stage 4, GFR 15-29 ml/min Claudication COPD (chronic obstructive pulmonary disease) Hypertension Pulmonary nodules Vertigo Surgical History S/P knee surgery S/P shoulder surgery Social History Smoking and tobacco status: current some day smoker Procedures Intubation sedative: none Laryngoscope: Karthik ET Tube Size: 8 ET Tube Uncuffed: No Tube Secured Depth (cm): 26 Tube Secured Location: lips Tube Placement Confirmation: visualized tube passing through cords, equal breath sounds bilaterally, no breath sounds over epigastrium and confirmation by capnometry Intubation Complications: none Course Vital Signs: Vital signs: Vital Signs Temperature 98.7 F 12/13/20 19:35 Pulse Rate 90 12/13/20 20:12 Respiratory Rate 17 12/13/20 20:02 Blood Pressure 144/91 12/13/20 19:40 Pulse Oximetry 93 12/13/20 20:02 MDM - Chest Pain MDM Narrative: Medical decision making narrative: I responded to a CODE BLUE and intubated patient during CPR. Code was ran by Dr. mane. No complications with intubation. Lab Data: Labs: Lab Results 12/12/20 12/12/20 12/12/20 Range/Units 18:59 18:59 18:59 WBC 10.9 H (4.0-10.0) 10^3/ uL RBC 4.08 L (4.1-5.3) 10^6/u L Hgb 13.1 (11.7-16.6) g/dL Hct 41.2 L (42.0-52.0) % MCV 101.0 H (80-94) fL MCH 32.1 (28.0-34.0) pg MCHC 31.8 (30.0-36.0) g/dL RDW 13.4 (12.1-15.1) % Plt Count 177 (130-400) 10^3/c mm MPV 9.8 (7.4-10.4) fL Neut % (Auto) 59.7 % Lymph % (Auto) 17.4 % Cascade % (Auto) 7.5 % Eos % (Auto) 14.3 % Baso % (Auto) 0.6 % Neut # (Auto) 6.50 (1.8-7.7) 10^3/u L Lymph # (Auto) 1.9 (0.8-4.8) 10^3/u L Cascade # (Auto) 0.8 (0.2-0.9) 10^3/u L Eos # (Auto) 1.6 H (0.0-0.8) 10^3/u L Baso # (Auto) 0.1 (0.0-0.1) 10^3/u L Nucleated RBC % (a uto) 0 % Nucleated RBCs # 0.0 /100WBC PT 14.50 (12.1-14.9) SECO NDS INR 1.10 (0.8-1.2) APTT 26.9 (23.9-36.7) SECO NDS D-Dimer 11.09 H (0-0.59) ug/mIFE U Sodium 144 (136-145) mmol/L Potassium 4.1 (3.5-5.1) mmol/L Chloride 107 (98-107) mmol/L Carbon Dioxide 24 (22-29) mmol/L Anion Gap 17.1 (5-19) BUN 34 H (8-23) mg/dL Creatinine 2.8 H (0.7-1.2) mg/dL GFR Calculation Not Reportable Glucose 117 H (65-115) mg/dL Calculated Osmolal ity 307 H (285-295) mOsm/k g Calcium 8.5 (8.5-10.5) mg/dL Total Bilirubin 0.4 (0.15-1.2) mg/dL AST 14 (0-40) U/L ALT 12 (0-41) U/L Alkaline Phosphata se 108 (40-130) IU/L Troponin T Baselin e (0-15) ng/L Troponin T 120 Min false pass (0-15) ng/L Delta Troponin T (0-10) ABS# Troponin T Hi Sens 6Hr (0-15) ng/L Troponin T Hi Sens 6Hr Delta (0-12) ng/L NT-Pro-B Natriuret Pep 1185 H (0-125) pg/mL Total Protein 7.4 (6.6-8.7) g/dL Albumin 4.0 (3.5-5.2) g/dL Globulin 3.4 (1.3-4.6) g/dL 12/12/20 12/12/20 12/13/20 Range/Units 18:59 21:13 00:26 WBC (4.0-10.0) 10^3/ uL RBC (4.1-5.3) 10^6/u L Hgb (11.7-16.6) g/dL Hct (42.0-52.0) % MCV (80-94) fL MCH (28.0-34.0) pg MCHC (30.0-36.0) g/dL RDW (12.1-15.1) % Plt Count (130-400) 10^3/c mm MPV (7.4-10.4) fL Neut % (Auto) % Lymph % (Auto) % Cascade % (Auto) % Eos % (Auto) % Baso % (Auto) % Neut # (Auto) (1.8-7.7) 10^3/u L Lymph # (Auto) (0.8-4.8) 10^3/u L Cascade # (Auto) (0.2-0.9) 10^3/u L Eos # (Auto) (0.0-0.8) 10^3/u L Baso # (Auto) (0.0-0.1) 10^3/u L Nucleated RBC % (a uto) % Nucleated RBCs # /100WBC PT (12.1-14.9) SECO NDS INR (0.8-1.2) APTT (23.9-36.7) SECO NDS D-Dimer (0-0.59) ug/mIFE U Sodium (136-145) mmol/L Potassium (3.5-5.1) mmol/L Chloride (98-107) mmol/L Carbon Dioxide (22-29) mmol/L Anion Gap (5-19) BUN (8-23) mg/dL Creatinine (0.7-1.2) mg/dL GFR Calculation Glucose (65-115) mg/dL Calculated Osmolal ity (285-295) mOsm/k g Calcium (8.5-10.5) mg/dL Total Bilirubin (0.15-1.2) mg/dL AST (0-40) U/L ALT (0-41) U/L Alkaline Phosphata se (40-130) IU/L Troponin T Baselin e 20 H (0-15) ng/L Troponin T 120 Min false pass 21.47 H (0-15) ng/L Delta Troponin T 1.47 (0-10) ABS# Troponin T Hi Sens 6Hr 28.24 H (0-15) ng/L Troponin T Hi Sens 6Hr Delta 8.24 (0-12) ng/L NT-Pro-B Natriuret Pep (0-125) pg/mL Total Protein (6.6-8.7) g/dL Albumin (3.5-5.2) g/dL Globulin (1.3-4.6) g/dL Discharge Plan Discharge Patient Disposition: Admitted As Inpatient Admit Provider: Jayda Mane Clinical Impression: Pulmonary embolism Qualifiers: Pulmonary embolism type: unspecified Chronicity: acute Acute cor pulmonale presence: unspecified Qualified Code(s): I26.99 - Other pulmonary embolism without acute cor pulmonale Chest pain Qualifiers: Chest pain type: other chest pain Qualified Code(s): R07.89 - Other chest pain Condition: Stable Discharge Diet: As Directed Coding Level of Care Code ED Sap Solution Manager Consultant for Natalia Ac
--- NOTE | 2020-12-13 22:36 | PC.NURSE ---
Addendum entered by Leigha Salcedo RN 12/13/20 22:55: Okay to release body to home per MTS graphotype operator Marissa. Original Note: Entered pt's room to pass evening meds at approx 2030. Noted that pt agonally breathing and unresponsive. Code called and CPR initiated. See Code flowsheet. Time of 2110. called and at bedside. Will release body to [facility]. MTS called and will contact family.
--- NOTE | 2020-12-16 13:27 | PM.DDS ---
Discharge Providers DDS Date of Admission: 12/13/20 02:25 Date Summary Completed: 12/19/20 Attending Provider at Admission: Jayda Jarquin Time of : 21:11 Attending Provider at Discharge: Rohit Thibodeaux MD Primary Care Provider: ANEESH Reynolds Diagnoses Hospital Diagnoses (1) Acute respiratory failure with hypoxia: (2) Metabolic acidosis: (3) Acute renal failure: (4) Pulmonary embolism: Qualifiers: Acute cor pulmonale presence: unspecified Chronicity: acute Pulmonary embolism type: unspecified Qualified Code(s): I26.99 - Other pulmonary embolism without acute cor pulmonale (5) CAD (coronary artery disease): Qualifiers: Associated angina: angina presence unspecified Coronary Disease-Associated Artery/Lesion type: [place] artery [place] vs. transplanted heart: [place] heart Qualified Code(s): I25.10 - Atherosclerotic heart disease of [place] coronary artery without angina pectoris (6) CHF (congestive heart failure): Qualifiers: Heart failure chronicity: chronic Heart failure type: diastolic Qualified Code(s): I50.32 - Chronic diastolic (congestive) heart failure (7) COPD (chronic obstructive pulmonary disease): Qualifiers: COPD type: emphysema Emphysema type: unspecified Qualified Code(s): J43.9 - Emphysema, unspecified (8) Hypertension: Qualifiers: Hypertension type: essential hypertension Qualified Code(s): I10 - Essential (primary) hypertension Reason for Visit Reason for Visit: CP Summary Date and Time of Date of : 12/13/20 Time of : 21:11 Summary Summary: This is a 75-year-old male with a past medical history of's chronic kidney disease stage III, type 2 diabetes mellitus, diastolic CHF, COPD, who presents to [facility] for complaints of chest pain Patient was admitted to [facility] for chest pain secondary to acute hypoxic respiratory failure, acute respiratory distress secondary to pulmonary emboli, COPD exacerbation and pneumonia. Patient had V/Q scan evidence of extensive left leg pulmonary emboli was initially admitted to the cardiac stepdown unit, but given worsening respiratory status was moved to the intensive care unit. Was started on oxygen therapy, BiPAP as needed, heparin drip, echocardiogram did not show significant evidence of right heart strain, bilateral lower extremity ultrasound negative for DVT, had elevated troponins with with a 6-hour delta troponin of 28. Patient also was developing evidence of acute renal failure, as his he had no significant urine output over the next 12 hours, minimal at 50 cc, Lamas catheter was placed for urine output monitoring. Patient was monitored in the ICU, remained on 3 to 4 L nasal cannula, having intermittent episodes of chest pain, no evidence of respiratory distress, urine output was minimal, renal work-up was ordered, renal ultrasound showed moderate chronic renal disease. In the evening of 12/13/2020, MARY DIAMOND was called, with loss of pulse, patient was intubated for acute respiratory failure, he had resuscitation for 40 minutes, time of 12/13/2020 at 21:11 patient's and niece were notified and were present. Acute respiratory distress with hypoxia due to pulmonary embolism, copd exacerbation and possible pneumonia - D-dimer of 11.09 - VQ scan suggestive of extensive left lung pulmonary emboli -Given patient's severe shortness of breath, pleuritic nature of chest pain, and VQ scan scan findings I suspect he has a large pulmonary emboli likely central on the left, with likely pulmonary infarct Plan: -Requires ICU admission -Continue oxygen, wean as tolerated, BiPAP as needed - Continue heparin gtt for now per protocol - Will obtain ECHO - assess for R.heart strain - B/L LE venous Doppler -negative for DVT - Monitor on telemetry - Duoneb tx q6hr -DuoNeb treatments every 6 hours -Solu-Medrol 40 every 8 hours -We will give a trial of Lasix 40 mg Metabolic acidosis, pH of 7.31, PCO2 is 45, lactic acid within normal limits, at anion gap 17.1, suspecting renal failure as an etiology Acute renal failure on chronic kidney disease stage III -Baseline creatinine is 2.8 -The only insult to the kidney that I can see is 60 mg of Lasix he received in the emergency room -Since then he has had 50 cc of urine output, Lamas was checked, bladder scan with no urine in the bladder -Continue to bladder scan every 4 hours -We will perform renal ultrasound -We will do a trial of 40 mg of Lasix -Avoid nephrotoxic agents for now Chest pain - Likely due to above - s/p ASA 325 mg po x 1 in ER, continue aspirin statin - ECHO ordered - Troponin 6-hour 8.24, delta of 28.24 -Continue telemetry monitoring -EKG no acute ST-T wave changes - Hyperension -Continue Coreg - Dyslipidemia - Coronary artery disease - Ch. Diastolic HF -Avoid fluid therapy -Lasix as needed for now - Tobacco abuse - GERD Additional Data Confirmation of as documented by pronouncing clinician: no pulse and no respirations Family: contacted Additional persons at bedside: nursing staff Attending/PCP notified?: Attending notified Was code activated?: Yes Advance directives?: No Hospice patient?: No Discharge Plan Discharge Patient Disposition: At Medical Facility Condition: Stable Prescriptions: No Action carvedilol 12.5 mg tablet 12.5 mg PO Q12H Qty: 180 RF: 3 nitroglycerin [Nitrostat] 0.4 mg tablet, sublingual 0.4 mg SUBLINGUAL Q5M PRN (Reason: chest pain) Qty: 25 RF: 6 atorvastatin 40 mg tablet 80 mg PO DAILY@0700 RF: 0 omeprazole 20 mg capsule,delayed release(DR/EC) 20 mg PO BID@0700,1900 RF: 0 azelastine 137 mcg (0.1 %) aerosol,spray See Rx Instructions .ROUTE .COMPLEX RF: 0 levocetirizine 5 mg tablet 5 mg PO DAILY@0700 RF: 0 isosorbide mononitrate 30 mg tablet extended release 24 hr 30 mg PO BID@0700,1900 RF: 0 amlodipine 5 mg tablet 5 mg PO BID@0700,1900 RF: 0 aspirin 81 mg tablet,delayed release (DR/EC) 162 mg PO DAILY@0700 RF: 0 Referrals: Sabina Yeh FNP [Primary Care Provider] - Discharge Diet: As Directed Probable Cause of Probable cause of : Cardiac arrest DS Attestations Time Spent in /Discharge Care*: other Quality - AMI: AMI present?: No Quality - Stroke: CVA present?: No Symptom Onset Unknown: No Quality - VTE: VTE present?: Yes Deep Vein Thrombosis/Pulmonary Embolism Present on Admission: Yes Coding Level of Care Code Acute Plywood Layup Line Core Feeder for David Shen Diagnoses Acute respiratory failure with hypoxia J96.01 Metabolic acidosis E87.2 Acute renal failure N17.9 Pulmonary embolism I26.99 Acute cor pulmonale presence: unspecified Chronicity: acute Pulmonary embolism type: unspecified CAD (coronary artery disease) I25.10 Associated angina: angina presence unspecified Coronary Disease-Associated Artery/Lesion type: [place] artery [place] vs. transplanted heart: [place] heart CHF (congestive heart failure) I50.32 Heart failure chronicity: chronic Heart failure type: diastolic COPD (chronic obstructive pulmonary disease) J43.9 COPD type: emphysema Emphysema type: unspecified Hypertension I10 Hypertension type: essential hypertension
== END 2020-12-13 21:11 | disposition expired | DRG 175 ==
LOC: ER 12-13 02:23 → CSU 12-13 02:44 → ICU 12-13 10:23
PROVIDERS: Admitting Provider Hospitalist; Emergency Provider Emergency Medicine; PCP Nurse Practitioner; Visit Provider Family Medicine
DX: I26.99 Other pulmonary embolism without acute cor pulmonale (principal); J96.01 Acute respiratory failure with hypoxia; J18.9 Pneumonia, unspecified organism; I13.0 Hypertensive heart and chronic kidney disease with heart failure and stage 1 through stage 4 chronic kidney disease, or unspecified chronic kidney disease; I50.32 Chronic diastolic (congestive) heart failure; E87.2 Acidosis; N17.9 Acute kidney failure, unspecified; N18.30 Chronic kidney disease, stage 3 unspecified; E11.22 Type 2 diabetes mellitus with diabetic chronic kidney disease; J43.9 Emphysema, unspecified; I71.4 Abdominal aortic aneurysm, without rupture; I25.10 Atherosclerotic heart disease of native coronary artery without angina pectoris; R91.8 Other nonspecific abnormal finding of lung field; F17.210 Nicotine dependence, cigarettes, uncomplicated; E78.5 Hyperlipidemia, unspecified; I46.9 Cardiac arrest, cause unspecified
CPT/HCPCS: 31500; 36415; 36600; 51702; 51798; 71045; 76770; 78014; 80051; 80053; 82330; 82803; 82805; 83605; 83880; 84484; 85014; 85018; 85025; 85378; 85610; 85730; 93005; 93970; 94640; 94664; 99291; A9540; A9567; C8929; J0171; J0282; J1170; J1644; J1940; J2270; J2405; J2543; J2930; J2997; J3370; J3490; J7030; Q9956